=== PATIENT | female | born 1990 | race Caucasian/White ===

== ENCOUNTER → 2017-09-06 | Outpatient (CLI) | payer BC ==
--- NOTE | 2017-09-06 13:53 | US ---
EXAMINATION TYPE: Transabdominal DATE OF EXAM: 07/31/17 COMPARISON: NONE CLINICAL HISTORY: R10.2 Pelvic and perineal pain, Z33.1 .... cramping, prior miscarriage. EXAM PERFORMED: Transabdominal (TA) EXAM MEASUREMENTS: GESTATIONAL AGE / DATING Physician Established: Not yet established Dates by LMP: (6 weeks/4 days) EDC: 04/28/2018 Dates by First Scan: No previous this is first scan Dates by Current Scan for: (6 weeks/4 days) EDC: 04/27/2018 MATERNAL ANATOMY Uterus: 9.4 x 3.9 x 5.2 cm Right Ovary: 2.5 x 1.8 x 2.5 cm Left Ovary: 2.9 x 1.7 x 1.9 cm Post CDS / Adnexa: wnl Presence of free fluid: none GESTATION / SURVEY CRL: 0.8 cm (6 weeks/5 days) Yolk Sac (normal less than 6mm): 0.3 cm Heart Rate: 135 bpm Rhythm: Normal IUP: Viable IUP Date of LMP: 07/22/2017 Single live intrauterine gestation is seen as gestational sac, yolk sac, and pole are identifie d. No free fluid is seen in pelvic cul-de-sac. Both ovaries are seen. No suspicious extraovarian adnexal masses are noted. IMPRESSION: Single live intrauterine gestation is present, mean crown-rump length is 0.8 cm corresponding to 6 we eks 5 day old fetus.
== END | disposition home or self-care (01) ==
LOC: RADUSMAIN 13:14
PROVIDERS: ATTEND Physician Assistant Medical
DX: O26.891 Other specified pregnancy related conditions, first trimester (principal); Z3A.01 Less than 8 weeks gestation of pregnancy; Z87.59 Personal history of other complications of pregnancy, childbirth and the puerperium
CPT/HCPCS: 76801

== ENCOUNTER 2017-12-21 16:04 | Observation (INO) | payer BC, OTHER ==
[2017-12-21] MEDS ORDERED: SODIUM CHLORIDE 0.9% 1,000 ML IV STA (16:38)
[2017-12-21 17:35] LABS: Basophils # (A) 0.1 k/uL (0-0.2); Basophils % (A) 0 %; Eosinophils # (A) 0.2 k/uL (0-0.7); Eosinophils % (A) 2 %; HGB 12.1 gm/dL (11.4-16.0); Lymphocytes # (A) 1.8 k/uL (1.0-4.8); Lymphocytes % (A) 14 %; MCH 31.7 pg (25.0-35.0); MCHC 34.6 g/dL (31.0-37.0); MCV 91.7 fL (80.0-100.0); Mean Platelet Volume 7.1; Monocytes # (A) 0.6 k/uL (0-1.0); Monocytes % (A) 5 %; Neutrophils # (A) 10.6 k/uL (1.3-7.7); Neutrophils % (A) 79 %; Platelet Count 335 k/uL (150-450); RBC 3.82 m/uL (3.80-5.40); RDW 12.7 % (11.5-15.5); WBC 13.4 k/uL (3.8-10.6)
[2017-12-21 17:45] LABS: ALT 22 U/L (9-52); AST 18 U/L (14-36); Albumin 3.6 g/dL (3.5-5.0); Alkaline Phosphatase 65 U/L (38-126); Anion Gap 7 mmol/L; Blood Urea Nitrogen 8 mg/dL (7-17); Calcium 9.3 mg/dL (8.4-10.2); Carbon Dioxide 24 mmol/L (22-30); Chloride 106 mmol/L (98-107); Glucose 70 mg/dL (74-99); Magnesium 1.6 mg/dL (1.6-2.3); Potassium 3.9 mmol/L (3.5-5.1); Sodium 137 mmol/L (137-145); Total Bilirubin 0.2 mg/dL (0.2-1.3); Total Protein 6.5 g/dL (6.3-8.2)
[2017-12-21 17:53] LABS: D-Dimer 0.39 mg/L FEU (<0.60); Prothrombin Time 9.8 sec (9.0-12.0)
[2017-12-21 18:02] LABS: Creatine Kinase 36 U/L (30-135)
[2017-12-21 18:13] LABS: Creatine Kinase MB 0.6 ng/mL (0.0-2.4); Troponin I <0.012 ng/mL (0.000-0.034)
[2017-12-21] MEDS ORDERED: NITROGLYCERIN SL TABS 0.4 MG TAB SUBLINGUAL PRN (19:34)
--- NOTE | 2017-12-21 19:49 | ED ---
Chest Pain HPI - General Chief Complaint: Chest Pain Stated Complaint: chest pain Time Seen by Provider: 12/21/17 16:26 Source: patient Mode of arrival: wheelchair Limitations: no limitations - History of Present Illness Initial Comments: 7 years O female she is at this point had a chest pain palpitation heart rate went up to as high as 1:30 and then now it kind of came down to around 58 she denies any vaginal bleeding any abdominal cramps chest pain was more so on the on this left side underneath her left breast she did say that the deep deep breath makes it worse and she has a small episodes of chest pain lasting very short duration she said she had a few of those duration since he been in the hospital. Past S pulse rate was around 1:30 past medical history is unremarkable past surgical history significant for appendectomy denies any alcohol now denies any tobacco use family history mom and his cervical cancer. - Related Data Home Medications Medication Instructions Recorded Confirmed Mtp-Dget-Etlqk Acid 1 cap PO HS 12/21/17 12/21/17 [-U Capsule (formulary)] Allergies Allergy/AdvReac Type Severity Reaction Status Date / Time No Known Allergies Allergy Verified 12/21/17 16:19 Review of Systems ROS Statement: Those systems with pertinent positive or pertinent negative responses have been documented in the HPI. ROS Other: All systems not noted in ROS Statement are negative. Past Medical History Past Medical History: No Reported History History of Any Multi-Drug Resistant Organisms: None Reported Past Surgical History: Appendectomy Past Psychological History: No Psychological Hx Reported Smoking Status: Never smoker Past Alcohol Use History: None Reported Past Drug Use History: None Reported General Exam - General Exam Comments Initial Comments: General: The patient is awake and alert, in no distress, and does not appear acutely ill. Skin: Skin is warm and dry and no rashes or lesions are noted. Eye: Pupils are equal, round and reactive to light, extra-ocular movements are intact; there is normal conjunctiva bilaterally. Ears, nose, mouth and throat: There are moist mucous membranes and no oral lesions. Neck: The neck is supple, there is no tenderness or JVD. Cardiovascular: There is a regular rate and rhythm. No murmur, rub or gallop is appreciated. Respiratory: To auscultation bilateral, no wheezing no rhonchi no distress respiratory lamb noticed Gastrointestinal: Soft, non-distended, non-tender abdomen without masses or organomegaly noted. There is no rebound or guarding present. Bowel sounds are unremarkable. Back: There is no tenderness to palpation in the midline. There is no obvious deformity. Musculoskeletal: Normal ROM, no tenderness, There is no pedal edema. There is no calf tenderness or swelling. No cords were appreciated. Neurological: CN II-XII intact, Cranial nerves III through XII are intact. There are no obvious motor or sensory deficits. Coordination appears grossly intact. Speech is normal. Psychiatric: Cooperative, appropriate mood & affect, normal judgment. Limitations: no limitations Course Vital Signs 12/21/17 12/21/17 12/21/17 16:14 18:49 19:45 Temperature 98.3 F 98.3 F Pulse Rate 88 84 79 Respiratory 18 18 18 Rate Blood Pressure 119/74 138/73 108/69 O2 Sat by Pulse 100 99 100 Oximetry EKG is normal sinus ventricular rate is 81 MD interval is 162 QRS duration is 74 QT/QTC 378/439 review of this EKG does not reveal any ST elevation rested up, Troponin, CBC, d-dimer, comprehensive metabolic panel are unremarkable considering that she had a few repetitive episodes of chest pain to the ER she she'll be admitted under Dr. Burgos service cardiology be consulted Disposition Clinical Impression: Chest pain Disposition: ADMITTED IP TO THIS HOSP Condition: Good Referrals: None,Stated [Primary Care Provider] - 1-2 days
[2017-12-21] MEDS ORDERED: PRENATAL VIT-IRON-FOLIC ACID 1 EACH CAP PO SCH (21:00)
[2017-12-22 00:03] LABS: Creatine Kinase 27 U/L (30-135)
[2017-12-22 00:17] LABS: Creatine Kinase MB 0.4 ng/mL (0.0-2.4); Troponin I <0.012 ng/mL (0.000-0.034)
[2017-12-22 06:13] LABS: Cholesterol 152 mg/dL (<200); HDL Cholesterol 52 mg/dL (40-60); LDL Cholesterol,Calculated 77 mg/dL (0-99); Triglycerides 114 mg/dL (<150)
[2017-12-22 06:17] LABS: Creatine Kinase 23 U/L (30-135)
[2017-12-22 06:31] LABS: Creatine Kinase MB 0.4 ng/mL (0.0-2.4); Troponin I <0.012 ng/mL (0.000-0.034)
[2017-12-22] MEDS ORDERED: ACETAMINOPHEN TAB 325 MG TAB PO PRN (12:17)
--- NOTE | 2017-12-22 12:22 | P.CRDCN ---
History of Present Illness History of present illness: This is Dr. Go dictating a consult on this patient The patient was interviewed and examined by me IMPRESSION / ASSESSMENT: Atypical chest discomfort lower left chest anteriorly pleuritic in nature normal d-dimer No evidence for acute myocardial infarction PLAN: 2-D echo and Doppler study to assess pericardium HPI 27-year-old female, , presenting with left lower chest discomfort over the lower ribs well below the breasts. There is a localized discomfort which is pleuritic in nature. No association shortness of breath no dizziness lightheadedness or palpitations ROS: No fever chills or rigors, no cough, phlegm or expectoration, no nausea, vomiting or diarrhea, no hematuria, dysuria, no musculoskeletal complaints, no strokes or seizures, no skin lesions. EXAMINATION Afebrile 98.3F pulse rate in the 70s blood pressure 93/52 Normal heart sounds normal S1 normal S2 Normal breath sounds no adventitious sounds No rub over the area of pain Extremities are warm no edema REVIEW OF LABS, ECG White count 13.4, hemoglobin 10.1, and at lites normal, renal function normal, normal cardiac enzymes 3, LDL 77 Normal d-dimer Twelve-lead ECG shows sinus rhythm normal ME narrow QRS normal ST segments Past Medical History Past Medical History: No Reported History Additional Past Medical History / Comment(s): pt stated she is 22 weeks . History of Any Multi-Drug Resistant Organisms: None Reported Past Surgical History: Appendectomy Additional Past Surgical History / Comment(s): wisdom teeth extractions Past Anesthesia/Blood Transfusion Reactions: No Reported Reaction Smoking Status: Never smoker - Past Family History Mother Family Medical History: Cancer Additional Family Medical History / Comment(s): cervical cancer twice- hysterectomy Father Family Medical History: No Reported History Medications and Allergies Home Medications Medication Instructions Recorded Confirmed Type Yeq-Hrgn-Qswmz Acid 1 cap PO HS 12/21/17 12/21/17 History [-U Capsule (formulary)] Allergies Allergy/AdvReac Type Severity Reaction Status Date / Time No Known Allergies Allergy Verified 12/21/17 21:01 Physical Exam Vitals: Vital Signs Temp Pulse Pulse Resp BP BP Pulse Ox 12/22/17 08:00 98.3 F 87 14 93/52 98 12/22/17 03:40 97.5 F L 72 16 93/55 97 12/22/17 03:25 16 12/22/17 00:05 98 F 77 16 95/54 98 12/21/17 23:30 18 12/21/17 21:11 18 12/21/17 20:55 97.7 F 81 16 119/70 98 12/21/17 20:43 97.0 F L 94 18 113/57 98 12/21/17 20:24 102 H 18 98 12/21/17 19:45 79 18 108/69 100 12/21/17 18:49 98.3 F 84 18 138/73 99 12/21/17 16:14 98.3 F 88 18 119/74 100 Intake and Output 12/21/17 12/22/17 12/22/17 22:59 06:59 14:59 Intake Total 525 Balance 525 Intake: IV 525 Sodium Chloride 0.9% 1, 525 000 ml @ 75 mls/hr IV . [id number] STA Rx#:[id number] Other: Voiding Method Toilet Toilet Toilet Weight 58.5 kg Results 12/21/17 17:00 12/21/17 17:00 Cardiac Enzymes 12/21/17 12/21/17 12/21/17 Range/Units 17:00 17:00 23:01 AST 18 (14-36) U/L CK-MB (CK-2) 0.6 0.4 (0.0-2.4) ng/mL Troponin I <0.012 <0.012 (0.000-0.034) ng/mL 12/22/17 Range/Units 05:30 AST (14-36) U/L CK-MB (CK-2) 0.4 (0.0-2.4) ng/mL Troponin I <0.012 (0.000-0.034) ng/mL Coagulation 12/21/17 Range/Units 17:00 PT 9.8 (9.0-12.0) sec APTT 25.0 (22.0-30.0) sec Lipids 12/22/17 Range/Units 05:30 Triglycerides 114 (<150) mg/dL Cholesterol 152 (<200) mg/dL HDL Cholesterol 52 (40-60) mg/dL CBC 12/21/17 Range/Units 17:00 WBC 13.4 H (3.8-10.6) k/uL RBC 3.82 (3.80-5.40) m/uL Hgb 12.1 (11.4-16.0) gm/dL Hct 35.0 (34.0-46.0) % Plt Count 335 (150-450) k/uL Comprehensive Metabolic Panel 12/21/17 Range/Units 17:00 Sodium 137 (137-145) mmol/L Potassium 3.9 (3.5-5.1) mmol/L Chloride 106 (98-107) mmol/L Carbon Dioxide 24 (22-30) mmol/L BUN 8 (7-17) mg/dL Creatinine 0.55 (0.52-1.04) mg/dL Glucose 70 L (74-99) mg/dL Calcium 9.3 (8.4-10.2) mg/dL AST 18 (14-36) U/L ALT 22 (9-52) U/L Alkaline Phosphatase 65 (38-126) U/L Total Protein 6.5 (6.3-8.2) g/dL Albumin 3.6 (3.5-5.0) g/dL Current Medications Generic Name Dose Route Start Last Admin Trade Name Freq PRN Reason Stop Dose Admin Acetaminophen 650 mg 12/22/17 12:17 Tylenol Tab PO Q6HR PRN Fever and/ or Pain Multivi/Iron Carb/Fe Sulf/FA/Prenat 1 each 12/21/17 21:00 12/21/17 21:26 -U Capsule PO 1 each HS JULIO Administration Nitroglycerin 0.4 mg 12/21/17 19:34 Nitrostat SUBLINGUAL Q5M PRN Chest Pain Intake and Output 12/21/17 12/22/17 12/22/17 22:59 06:59 14:59 Intake Total 525 Balance 525 Intake: IV 525 Sodium Chloride 0.9% 1, 525 000 ml @ 75 mls/hr IV . [id number] STA Rx#:[id number] Other: Voiding Method Toilet Toilet Toilet Weight 58.5 kg 12/21/17 17:00 12/21/17 17:00
[2017-12-22 16:04] VITALS: BP 106/64; PULSE 83; RESP 14; TEMP 97.9
--- NOTE | 2017-12-22 17:38 | ECHOF ---
Referral Reason:chest pain MEASUREMENTS -------- HEIGHT: 160.0 cm WEIGHT: 58.1 kg BP: IVSd: 0.9 cm (0.6 - 1.1) LVIDd: 3.9 cm (3.9 - 5.3) LVPWd: 0.9 cm (0.6 - 1.1) IVSs: 1.1 cm LVIDs: 2.8 cm LVPWs: 1.2 cm LA Diam: 2.8 cm (2.7 - 3.8) RVIDd: 2.0 cm (< 3.3) Ao Diam: 2.4 cm (2.0 - 3.7) LA Diam: 2.9 cm (2.7 - 3.8) AV Cusp: 1.8 cm (1.5 - 2.6) EPSS: 0.3 cm MV E Sebastian: 0.81 m/s MV DecT: 250 ms MV A Sebastian: 0.62 m/s MV E/A Ratio: 1.31 RAP: 5.00 mmHg RVSP: 22.76 mmHg MV EF SLOPE: 87.51 mm/s (70 - 150) MV EXCURSION: 22.39 mm (> 18.000) FINDINGS -------- Sinus rhythm. This was a technically good study. LV size, wall thickness and systolic function are normal, with an EF greater than 55%. The left una tricular size is normal. The right ventricle is normal in size. The left atrial size is normal. The right atrial size is normal. The aortic valve is trileaflet, and appears structurally normal. No aortic stenosis or regurgitation. The mitral valve leaflets are mildly thickened. There is trace mitral regurgitation. Mild tricuspid regurgitation present. There is no evidence of pulmonary hypertension. The right v entricular systolic pressure, as measured by Doppler, is 22.76mmHg. There is no pulmonic regurgitation present. The aortic root size is normal. There is no pericardial effusion. CONCLUSIONS -------- 1. LV size, wall thickness and systolic function are normal, with an EF greater than 55%. 2. The left ventricular size is normal. 3. The right ventricle is normal in size. 4. The left atrial size is normal. 5. The right atrial size is normal. 6. The aortic valve is trileaflet, and appears structurally normal. No aortic stenosis or regurgitati on. 7. The mitral valve leaflets are mildly thickened. 8. There is trace mitral regurgitation. 9. Mild tricuspid regurgitation present. 10. There is no evidence of pulmonary hypertension. 11. The right ventricular systolic pressure, as measured by Doppler, is 22.76mmHg. 12. There is no pulmonic regurgitation present. 13. The aortic root size is normal. 14. There is no pericardial effusion. SAFE DEPOSIT ATTENDANT: Yari Dangelo RDCS
--- NOTE | 2017-12-22 18:44 | P.HPIM ---
History of Present Illness H&P Date: 12/22/17 Chief Complaint: Left-sided chest pain Mrs. Lisa is a 27-year-old female with no significant past medical history who was 20 weeks coming in to the hospital with a chief complaint of right sided lower chest discomfort over her ribs well below her breasts. The chest discomfort was along the left rib cage it was pleuritic in nature without any difficulty in breathing. Patient denies having any dizziness or lightheadedness. The patient checked her blood pressure at that time it was high and also heart heart rate was high and so came into the hospital for further evaluation. Patient denies having any fevers chills or rigors. No abdominal pain nausea vomiting or diarrhea. No dysuria or hematuria. She denies having any headaches any loss of consciousness or dizziness. No slurring of speech no weakness of her extremities. Patient denies having any history of recent travel. No family history of blood clots. No sick contacts. During the hospital stay patient had serial troponins that have been negative d- dimer that was 0.36 and an echocardiogram that is within normal limits. Review of Systems REVIEW OF SYSTEMS: PSYCH: No anxiety or depression NEURO:No c/o weakness of the extremties, No facial droop, No speech abnormalities. VASCULAR: Peripheral nervous system within the normal limits no edema HEMATOLOGIC: No history of easy bleeding and bruising . No recent infections . RESPIRATORY: No cough, No SOB, No chest discomfort. IMMUNE: No infections INTEGUMENT: no rashes OPHTHALMOLOGIC: No blurry vision and no eye discharge : No dysuria or hematuria UPPER CUTTER MACHINE: No bleeding PV CARDIAC: No shortness of breath , paroxysmal nocturnal dyspnea MUSCULOSKELETAL : No Aches or pains in the joints or muscles. GI: No abdominal pain, Nausea or vomiting. No constipation or diarrhea. Past Medical History Past Medical History: No Reported History Additional Past Medical History / Comment(s): pt stated she is 22 weeks . History of Any Multi-Drug Resistant Organisms: None Reported Past Surgical History: Appendectomy Additional Past Surgical History / Comment(s): wisdom teeth extractions Past Anesthesia/Blood Transfusion Reactions: No Reported Reaction Smoking Status: Never smoker - Past Family History Mother Family Medical History: Cancer Additional Family Medical History / Comment(s): cervical cancer twice- hysterectomy Father Family Medical History: No Reported History Medications and Allergies Home Medications Medication Instructions Recorded Confirmed Type Upj-Rvls-Zgmhz Acid 1 cap PO HS 12/21/17 12/21/17 History [-U Capsule (formulary)] Allergies Allergy/AdvReac Type Severity Reaction Status Date / Time No Known Allergies Allergy Verified 12/21/17 21:01 Physical Exam Vitals: Vital Signs Temp Pulse Pulse Resp BP BP Pulse Ox 12/22/17 16:00 97.9 F 83 14 106/64 99 12/22/17 12:00 98.2 F 90 16 104/69 97 12/22/17 08:00 98.3 F 87 14 93/52 98 12/22/17 03:40 97.5 F L 72 16 93/55 97 12/22/17 03:25 16 12/22/17 00:05 98 F 77 16 95/54 98 12/21/17 23:30 18 12/21/17 21:11 18 12/21/17 20:55 97.7 F 81 16 119/70 98 12/21/17 20:43 97.0 F L 94 18 113/57 98 12/21/17 20:24 102 H 18 98 12/21/17 19:45 79 18 108/69 100 12/21/17 18:49 98.3 F 84 18 138/73 99 Intake and Output 12/22/17 12/22/17 12/22/17 06:59 14:59 22:59 Intake Total 525 750 Balance 525 750 Intake: IV 525 Sodium Chloride 0.9% 1, 525 000 ml @ 75 mls/hr IV . [id number] STA Rx#:[id number] Oral 750 Other: Voiding Method Toilet Toilet Toilet GENERAL EXAM GEN. APPEARANCE: alert, in no apparent distress HEAD EXAM: atraumatic, normocephalic, normal inspection EYE EXAM: normal appearance, PERRL, EOMI. Absent: scleral icterus, conjunctival injection, periorbital swelling ENT EXAM: normal exam, mucous membranes moist NECK EXAM: normal inspection. Absent: tenderness, meningismus, full ROM, lymphadenopathy; no JVD RESPIRATORY EXAM: normal lung sounds bilaterally. No wheezes or crackles CARDIOVASCULAR EXAM: regular rate, normal rhythm, normal heart sounds. Absent : systolic murmur, diastolic murmur, rubs, gallop, clicks GI/ABDOMINAL EXAM: 20 weeks . No epigastric tenderness. EXTREMITIES EXAM: Mild pedal edema NEUROLOGICAL EXAM: alert, oriented X3, no focal deficits PSYCHIATRIC EXAM: normal affect, normal mood SKIN EXAM: warm, dry, intact, normal color. Absent: rash Results CBC & Chem 7: 12/21/17 17:00 12/21/17 17:00 Labs: Abnormal Lab Results - Last 24 Hours (Table) 12/21/17 12/22/17 Range/Units 23:01 05:30 Total Creatine Kinase 27 L 23 L (30-135) U/L Thrombosis Risk Factor Assmnt - Choose All That Apply Any of the Below Risk Factors Present?: Yes Each Factor Represents 1 point: or , Swollen legs (current) Other Risk Factors: No Other congenital or acquired thrombophilia - If yes, enter type in comment: No Thrombosis Risk Factor Assessment Total Risk Factor Score: 2 Thrombosis Risk Factor Assessment Level: Low Risk Assessment and Plan Assessment: ASSESSMENT Atypical chest pain 20 weeks Leukocytosis -may be reactive Plan: Patient who is 20 weeks came in with atypical chest pain. Serial troponins and EKGs within normal limits. D-dimer is within normal limits. Only significant lab is mild leukocytosis. Patient denies having any symptoms of hematuria or dysuria. Urine analysis was not done. She has been cleared by cardiology to be discharged home. Patient is advised to follow up with her WAITER/WAITRESS CABIN CLASS on Sunday or come back to the ER if her symptoms recur. Patient is being discharged home to have follow-up with her soil field technician.
--- NOTE | 2017-12-22 18:46 | P.DS ---
Providers Date of admission: 12/21/17 19:34 Attending physician: Sudeep Burgos Consults: 12/21/17 19:34 Consult Physician Urgent Consulting Provider: Ernie Kim Consult Reason/Comments: chest pain Do you want consulting provider notified?: Yes Primary care physician: Stated None Hospital Course: Mrs. Lisa is a 27-year-old female with no significant past medical history who was 20 weeks coming in to the hospital with a chief complaint of right sided lower chest discomfort over her ribs well below her breasts. The chest discomfort was along the left rib cage it was pleuritic in nature without any difficulty in breathing. Patient denies having any dizziness or lightheadedness. The patient checked her blood pressure at that time it was high and also heart heart rate was high and so came into the hospital for further evaluation. Patient denies having any fevers chills or rigors. No abdominal pain nausea vomiting or diarrhea. No dysuria or hematuria. She denies having any headaches any loss of consciousness or dizziness. No slurring of speech no weakness of her extremities. Patient denies having any history of recent travel. No family history of blood clots. No sick contacts. During the hospital stay patient had serial troponins that have been negative d- dimer that was 0.36 and an echocardiogram that is within normal limits. Discharge diagnosis Atypical chest pain 20 weeks Leukocytosis -may be reactive Plan: Patient who is 20 weeks came in with atypical chest pain. Serial troponins and EKGs within normal limits. D-dimer is within normal limits. Only significant lab is mild leukocytosis. Patient denies having any symptoms of hematuria or dysuria. Urine analysis was not done. She has been cleared by cardiology to be discharged home. Patient is advised to follow up with her FOOD AND NUTRITION PROFESSOR on Sunday or come back to the ER if her symptoms recur. Patient is being discharged home to have follow-up with her executive business coach. Patient Condition at Discharge: Good Plan - Discharge Summary Discharge Rx Participant: Yes New Discharge Prescriptions: Continue Thr-Fvoe-Ibkta Acid [-U Capsule (formulary)] 1 cap PO HS Discharge Medication List Rfv-Jveq-Mfenk Acid [-U Capsule (formulary)] 1 cap PO HS [History] Follow up Appointment(s)/Referral(s): None,Stated [Primary Care Provider] - 1-2 days Patient Instructions/Handouts: Chest Pain (DC) Discharge Disposition: HOME SELF-CARE
== END 2017-12-22 18:26 | disposition home or self-care (01) ==
LOC: EC 16:04 → 3OBS 19:34
PROVIDERS: ADMIT Hospitalist; ATTEND Hospitalist
DX: O99.89 Other specified diseases and conditions complicating pregnancy, childbirth and the puerperium (principal); R07.89 Other chest pain; R00.2 Palpitations; O99.112 Other diseases of the blood and blood-forming organs and certain disorders involving the immune mechanism complicating pregnancy, second trimester; D72.829 Elevated white blood cell count, unspecified; O12.02 Gestational edema, second trimester; Z3A.22 22 weeks gestation of pregnancy; Z90.89 Acquired absence of other organs; Z98.818 Other dental procedure status; Z80.49 Family history of malignant neoplasm of other genital organs
CPT/HCPCS: 99285 ×2; 96360 ×2; 96361 ×2; 36415; 93005; 93306; 85379; 80061; 80053; 82550 ×2; 82553 ×2; 83735; 84484 ×2; 85025; 85610; 85730; G0378 ×2; S0197

== ENCOUNTER 2018-03-25 10:22 | Outpatient (CLI) | payer BC, OTHER ==
--- NOTE | 2018-03-25 11:57 | US ---
EXAMINATION TYPE: US OB >= 14 wk fetus DATE OF EXAM: 03/25/2018 COMPARISON: None CLINICAL HISTORY: KEE, EFW, Placenta placement TECHNIQUE: Transabdominal ultrasound was performed. GESTATIONAL AGE / DATING Physician Established: ( 35 weeks/2 days) EDC: 04/27/18 Dates by Current Scan: (34 weeks/1 days) EDC: 05/05/18 SURVEY IUP: Single PLACENTA: Patient states she has 2 placenta's, they appear wnl PREVIA: none KEE: 10.9 cm 2.8 CERVICAL LENGTH (transabdominal: norm > 3.0cm): 2.8 cm (Supplemental transvaginal imaging NOT performed to verify cervical length.) Per AGNIESZKA Decker BIOMETRY PRESENTATION: Vertex BPD: 8.5 cm 34 weeks / 2 days HC: 31.8 cm 35 weeks / 6 days AC: 30.7 cm 34 weeks / 5 days FL: 6.5 cm 33 weeks / 4 days ESTIMATED WEIGHT IN GRAMS: 3432 grams ESTIMATED WEIGHT IN LBS/OZ: 5 lbs. 6 oz. WEIGHT PERCENTAGE BASED ON ESTABLISHED DATES: 25% HC/AC: 1.0 FL/AC: 21.6 HEART RATE: 151 bpm RHYTHM: Normal There is a Y-shape of the cervix and shortening of the cervix with the posterior aspect of the placen ta approaching the internal cervical os, approximately 5 mm away from the internal cervical os. IMPRESSION: Findings of cervical incompetence with a Y-shaped cervix and shortening of the cervix (2.8 cm). The p osterior placenta appears at least low-lying with suspicion for partial placenta previa. Single live intrauterine is seen with a sonographic age of 34 weeks and 1 day on today's examination, s lightly discordant with previous physician established dates. A [place] level critical message alert has been initiated for Pancho Melara DO via the [employer] Critical Results System on 03/25/2018 11:52 AM. This message alert has been sent to Pancho Melara DO via the preferences provided by the clinician for the receipt of Radiology Critical Findings. [facility] ID [id number].
[2018-03-25 13:00] VITALS: BP 130/72; PULSE 95; RESP 16; TEMP 97.2
== END 2018-03-25 11:55 | disposition home or self-care (01) ==
LOC: FBPOP 10:22
PROVIDERS: ATTEND Obstetrics & Gynecology
DX: O34.33 Maternal care for cervical incompetence, third trimester (principal); Z3A.34 34 weeks gestation of pregnancy
CPT/HCPCS: 59025; 76805; 84112; 99213

== ENCOUNTER 2018-03-29 08:45 | Outpatient (CLI) | payer BC, OTHER ==
[2018-03-29 09:42] VITALS: BP 128/77; PULSE 124; RESP 18; TEMP 98
--- NOTE | 2018-03-29 10:31 | US ---
EXAMINATION TYPE: US OB >= 14 wk fetus DATE OF EXAM: 03/29/2018 COMPARISON: Most recent ultrasound from 4 days ago CLINICAL HISTORY: vaginal bleedingVaginal bleeding x 2 days, known third trimester TECHNIQUE: Transabdominal (TA) GESTATIONAL AGE / DATING Physician Established: (35 weeks/6 days) EDC: 04/27/2018 Dates by LMP: (35 weeks/5 days) EDC: 04/28/2018 Dates by First Scan: (35 weeks/6 days) EDC: 04/27/2018 Dates by Current Scan: (35 weeks/4 days) EDC: 04/29/2018 SURVEY IUP: Single PLACENTA: Patient states she has 2 placenta's, they appear wnl PREVIA: limited visualization due to position, posterior portion of placenta appears to be low lying KEE: 11.0 cm Normal CERVICAL LENGTH (transabdominal: norm > 3.0cm): 3.0 cm BIOMETRY PRESENTATION: Vertex BPD: 8.9 cm 35 weeks / 6 days HC: 31.8 cm 35 weeks / 6 days AC: 30.9 cm 34 weeks / 6 days FL: 6.9 cm 35 weeks / 3 days ESTIMATED WEIGHT IN GRAMS: 2627 grams ESTIMATED WEIGHT IN LBS/OZ: 5 lbs. 13 oz. WEIGHT PERCENTAGE BASED ON ESTABLISHED DATES: 33% HC/AC: 1.03 Normal FL/AC: 22.36 Normal HEART RATE: 181 bpm RHYTHM: Normal Single live intrauterine gestation is redemonstrated. Normal cephalad presentation to fetus is again seen. Cervix measures mildly thinned not significantly changed from most recent ultrasound. Amniotic fluid index remains within normal limits. Placenta remains low-lying. biometry measurements are congruent and slightly more advanced than most recent study. IMPRESSION: As above
--- NOTE | 2018-03-29 12:15 | US ---
EXAMINATION TYPE: US OB transvaginal DATE OF EXAM: 03/29/2018 COMPARISON: Ultrasound earlier today CLINICAL HISTORY: vaginal bleeding. EXAM PERFORMED: Transvaginal PRESENTATION: Vertex HEART RATE: 181 taken early in OB ultrasound?? bpm CX measurement: 3.4 Additional imaging requested by Dr. Melara of vasculature of cervix. Pictures taken. Repeat imaging of the cervix shows no suspicious narrowing with cephalad presentation to fetus redemo nstrated. Trace fluid in the endocervical canal is noted.
--- NOTE | 2018-04-06 12:04 | P.MSEPDOC ---
Presenting Problems - Arrival Data Date of Arrival on Unit: 03/29/18 Time of Arrival on Unit: 08:45 Mode of Transport: Portable - Complaint OB-Reason for Admission/Chief Complaint: Vaginal Bleeding Comment: pt presents to triage with vaginal bleeding since 1945 last night, changed 4 pads, having dime size clots, not wearing a pad at this time, states darker blood since 0000 this am Medical History - Information : 2 Para: 0 Term: 0 : 0 Abortions: Spontaneous or Elective: 1 Number of Living Children: 0 - Gestational Age Gestational Age by CHANDLER (wks/days): 35 Weeks and 6 Days - History Complications: Placenta Previa Review of Systems - Review of Systems Constitutional: No problems Breast: No problems ENT: No problems Cardiovascular: No problems Respiratory: No problems Gastrointestinal: No problems Genitourinary: No problems Musculoskeletal: No problems Neurological: No problems Skin: No problems Vital Signs - Temperature Temperature: 98.0 F Temperature Source: Temporal Artery Scan - Pulse Right Brachial Pulse Rate: 124 Pulse Assessment Method: Automatic Cuff - Respirations Respiratory Rate: 18 Oxygen Delivery Method: Room Air O2 Sat by Pulse Oximetry: 98 - Blood Pressure Right Arm Blood Pressure: 128/77 Blood Pressure Mean: 94 Blood Pressure Source: Automatic Cuff Medical Screen Scoring (Pre) - Cervical Exam Dilation: Exam Deferred Effacement: Exam Deferred Membranes: Intact - Uterine Contractions Frequency: < 36 weeks = 6 Duration: > 40 seconds = 2 Intensity: N/A - Maternal Vital Signs Maternal Temperature: N/A Maternal Blood Pressure: N/A Signs of Preeclampsia: N/A Maternal Respirations: N/A - Pain Assessment Pain Location and Character: Perineal Pain Scale Used: Numeric (1 - 10) Pain Description: Pressure Pain Radiation Location: none Pain Duration: 8 Pain Duration Units: Hours Pain Behavior: Vocalization - Maternal Trauma Maternal Trauma: N/A - Assessment Baseline FHR: 140 Heart Rate - NICHD Category: Category I (Normal) = 0 NST: Reactive Position: N/A Station: N/A - Total Score Total Score (Pre): 8 - Level of Risk Level of Risk: Medium (6-9) Physician Notification (Pre) - Physician Notified Physician Notified Date: 03/29/18 Physician Notified Time: 09:15 Physician/Practitioner Notifed:: Dr. Melara Spoke With: Dr. Melara New Order Received: Yes - Notification Comment Comment: stat ultrasound ordered, observe for vaginal bleeding on sharifa pad Medical Screen Scoring (Post) - Cervical Exam Dilation: Exam Deferred Effacement: Exam Deferred Membranes: Intact - Uterine Contractions Frequency: > 5 minutes apart = 1 Duration: > 40 seconds = 2 Intensity: N/A - Maternal Vital Signs Maternal Temperature: N/A Maternal Blood Pressure: N/A Signs of Preeclampsia: N/A Maternal Respirations: N/A - Pain Assessment Pain Scale Used: Numeric (1 - 10) Pain Intensity: 0 - Maternal Trauma Maternal Trauma: N/A - Assessment Heart Rate: 130 Heart Rate - NICHD Category: Category I (Normal) = 0 NST: Reactive Position: N/A - Total Score Total Score (Post): 3 - Post Treatment Level of Risk Post Treatment Level of Risk: Low (0-5) Physician Notification (Post) - Physician Notified Physician Notified Date: 03/29/18 Physician Notified Time: 12:15 Physician/Practitioner Notified:: Dr. Melara Spoke With: Dr. Melara New Order Received: Yes - Notification Comment Comment: Dr. Melara had transvag ultrasound done per pt request for today instead of 04/02 and results are pending, pics are in pt's chart per ultrasound , she is going to office for [address] Melara to discuss results and plans from here Disposition - Disposition OB Disposition: Triage, Discharge to home, Written follow up instructions reviewed Discharge Date: 03/29/18 Discharge Time: 12:30 I agree with the RN Medical Screening Exam: Yes Risk & Benefit of care provided described in d/c instruction: Yes Diagnosis: SPOTTING COMPLICATING , THIRD TRIMESTER
== END 2018-03-29 12:30 | disposition home or self-care (01) ==
LOC: FBPOP 08:45
PROVIDERS: ATTEND Obstetrics & Gynecology
DX: O26.853 Spotting complicating pregnancy, third trimester (principal); Z3A.35 35 weeks gestation of pregnancy
CPT/HCPCS: 59025; 76805; 76817; 99215

== ENCOUNTER 2018-04-20 08:07 | Inpatient (IN) | payer BC, OTHER ==
[2018-04-19 15:48] VITALS: BMI 25.6
--- NOTE | 2018-04-19 17:20 | P.HPOB ---
History of Present Illness H&P Date: 04/19/18 Chief Complaint: Intrauterine at term Leatha is a 27-year-old at 39 weeks gestation who arrives for a primary section. Her Precis course generally speaking has been unremarkable and overall she is feeling well at this time. Throughout the course of the we have been following a low-lying placenta as well as a accessory lobe to her placenta. She has significant concern over the placenta and after speaking to her other secretarial stenographer and their recommendation was to do a primary section. Leatha and I have discussed this in detail and she would feel more comfortable with a primary section as I cannot completely rule out things like vessels across the cervix as well as potential for retained placenta or bleeding issues during labor due to same. She is therefore scheduled for primary section. Her labs include A+ blood type Rh antibody was negative, rubella immune, hepatitis B surface antigen/RPR and HIV were all negative. On physical exam vital signs are stable and afebrile. Heart regular, lungs clear, extremities without pain. Assessment intrauterine at term. Plan primary section Past Medical History Past Medical History: GERD/Reflux Additional Past Medical History / Comment(s): pt stated she is 22 weeks . History of Any Multi-Drug Resistant Organisms: None Reported Past Surgical History: Appendectomy Additional Past Surgical History / Comment(s): wisdom teeth extractions Past Anesthesia/Blood Transfusion Reactions: No Reported Reaction Smoking Status: Never smoker - Past Family History Mother Family Medical History: Cancer Additional Family Medical History / Comment(s): cervical cancer twice- hysterectomy Father Family Medical History: No Reported History Medications and Allergies Home Medications Medication Instructions Recorded Confirmed Type Ppb-Tkcf-Looas Acid 1 cap PO HS 12/21/17 04/19/18 History [-U Capsule (formulary)] Calcium Carbonate [Tums] 500 mg PO TID PRN 04/19/18 04/19/18 History Allergies Allergy/AdvReac Type Severity Reaction Status Date / Time adhesive tape Allergy Rash/Hives Verified 04/19/18 15:36 Exam Osteopathic Statement: *. No significant issues noted on an osteopathic structural exam other than those noted in the History and Physical/Consult. Intake and Output 04/19/18 04/19/18 04/19/18 06:59 14:59 22:59 Other: Weight 63.503 kg - OBG Physical Exam Breast: both: normal (no masses) Abdomen: bowel sounds normal, no diffuse tenderness, no bruit present, no guarding noted, no hepatomegaly, no splenomegaly, no mass Vulva: both: normal Vagina: normal moisture, no discharge Cervix: no lesion, no discharge Uterus: normal size, normal contour Adnexa: both: normal Anus/Rectum: normal perianal skin, no rectal mass, no hemorrhoids, heme negative
[~2018-04-20 08:07] MED LIST: HYDROmorphone 0.5 MG/0.5 ML SYRINGE IVP PRN; NALBUPHINE 10 MG/ML VIAL (10ML MDV) IV PRN; NALOXONE 0.4 MG/ML 1 ML VIAL IV PRN; ONDANSETRON 4 MG/2 ML VIAL IVP PRN; diphenhydrAMINE 50 MG/ML 1 ML VIAL IVP PRN
[2018-04-20] MEDS ORDERED: LIDOCAINE 1% 20 ML VIAL (10MG/ML) FOR IV START INTRADERMA PRN (08:20)
[2018-04-20] MEDS ORDERED: CITRIC ACID-SODIUM CITRATE 15 ML CUP PO ONE (08:20)
[2018-04-20] MEDS ORDERED: ceFAZolin IN SWFI 2 GM/20 ML SYRINGE IVP ONE (08:20)
[2018-04-20] MEDS: LACTATED RINGERS 1,000 ML IV SCH ×4 (08:30→21:58)
[2018-04-20 08:46] LABS: Basophils % (A) 0 %; Eosinophils # (A) 0.2 k/uL (0-0.7); Eosinophils % (A) 2 %; HCT 34.3 % (34.0-46.0); HGB 11.2 gm/dL (11.4-16.0); Lymphocytes # (A) 1.7 k/uL (1.0-4.8); Lymphocytes % (A) 14 %; MCH 29.5 pg (25.0-35.0); MCHC 32.6 g/dL (31.0-37.0); MCV 90.5 fL (80.0-100.0); Mean Platelet Volume 7.9; Monocytes # (A) 0.6 k/uL (0-1.0); Monocytes % (A) 5 %; Neutrophils # (A) 9.7 k/uL (1.3-7.7); Neutrophils % (A) 78 %; Platelet Count 282 k/uL (150-450); RBC 3.79 m/uL (3.80-5.40); RDW 13.7 % (11.5-15.5); WBC 12.4 k/uL (3.8-10.6)
[2018-04-20] MEDS ORDERED: NALBUPHINE 10 MG/ML VIAL (10ML MDV) ONE (09:34)
[2018-04-20] MEDS ORDERED: MORPHINE SULFATE (PF) 0.3 MG/0.3 ML SYR ONE (09:34)
[2018-04-20] MEDS ORDERED: ONDANSETRON 4 MG/2 ML VIAL ONE (09:34)
[2018-04-20] MEDS ORDERED: PHENYLEPHRINE-0.9% NACL SYG 1 MG/10 ML SYRINGE ONE (09:34)
[2018-04-20] MEDS ORDERED: OXYTOCIN 10 UNIT/ML 1 ML VIAL ONE (09:34)
[2018-04-20] MEDS ORDERED: KETOROLAC 30 MG/ML 1 ML VIAL ONE (09:34)
[2018-04-20] MEDS ORDERED: METOCLOPRAMIDE 5 MG/ML 2 ML VIAL IVP PRN (10:17)
[2018-04-20] MEDS ORDERED: ACETAMINOPHEN TAB 325 MG TAB PO PRN (10:17)
[2018-04-20] MEDS ORDERED: ZOLPIDEM 5 MG TAB PO PRN (10:17)
[2018-04-20] MEDS ORDERED: MEASLES-MUMPS-RUBELLA VACC/PF 12,500 UNIT/0.5 ML VIAL SQ ONE (10:17)
[2018-04-20] MEDS ORDERED: diphenhydrAMINE 25 MG CAP PO PRN (10:17)
[2018-04-20] MEDS ORDERED: SIMETHICONE 80 MG CHEWABLE PO PRN (10:17)
[2018-04-20] MEDS ORDERED: diphenhydrAMINE 50 MG/ML 1 ML VIAL IVP PRN ×2 (10:17)
--- NOTE | 2018-04-20 10:22 | P.OP ---
Date of Procedure: 04/20/18 Preoperative Diagnosis: Intrauterine at term: Excess reloadable on placenta Postoperative Diagnosis: Same Procedure(s) Performed: Primary low transverse section Anesthesia: spinal Surgeon: Pancho Melara Curriculum Supervisor #1: Kate Torres Estimated Blood Loss (ml): 500 IV fluids (ml): 600 Urine output (ml): 300 Pathology: other (Placenta) Condition: stable Disposition: floor Operative Findings: Viable male weighing 6 lbs. 9 oz. Description of Procedure: Patient was taken to the operating suite where a spinal anesthetic was found be adequate. She was prepped and draped in the normal sterile fashion placed in dorsal supine position with leftward tilt. Initially a Pfannenstiel skin incision was made and this incision was then carried through to underlying layer of the fascia with the second knife. Fascia was then nicked in the midline and this opening extended laterally with Ghosh scissors. Superior and inferior aspect of this incision were then grasped tented up and bluntly and sharply dissected off the rectus muscles. Rectus muscles were then divided the midline and blunt dissection through the through the peritoneum was made. This opening was then extended superiorly and inferiorly with good visualization of both bowel bladder. Bladder blade was then placed and a bladder flap identified. It was entered sharply with Metzenbaum scissors and this opening was extended across the face of the uterus with Metzenbaum scissors and her bladder flap was digitally created. Knife was then used to incise the uterus and this opening was fully developed with hemostat. Incision was then bluntly extended and head was atraumatically delivered. Mouth nares were then bulb suctioned and baby was easily delivered with gentle downward upper traction. A true knot was noted in the cord. Umbilical cord was then clamped cut usual fashion an nursery personnel was present to assume care. Placenta was then delivered intact and Pitocin was added to the IV. Uterus was then exteriorized cleared of clots and debris and closed in 2 layers with 0 Vicryl suture. Once excellent hemostasis was obtained blood and debris was suctioned from the posterior cul-de-sac and the uterus was reinserted into the abdomen. Peritoneal layer was then closed with 0 Vicryl suture. Fascial layer was closed with 0 Vicryl suture. One layer of 3-0 Vicryl was placed in the subcuticular tissues to reapproximate the skin the skin was then closed with 3- 0 Vicryl. Sponge, lap, needle counts were all correct 2. Patient was then taken to the recovery room in stable and satisfactory condition.
[2018-04-20] MEDS ORDERED: HYDROmorphone 1 MG/ML 1 ML SYRINGE IVP PRN (11:51)
[2018-04-20] MEDS: KETOROLAC 30 MG/ML 1 ML VIAL IVP PRN ×2 (15:35→21:57)
[2018-04-20] MEDS: diphenhydrAMINE 50 MG CAP PO PRN (20:11)
[2018-04-20] MEDS: SENNOSIDES-DOCUSATE SODIUM 1 EACH TAB PO SCH (20:11)
[2018-04-21] MEDS: KETOROLAC 30 MG/ML 1 ML VIAL IVP PRN (04:10)
[2018-04-21] MEDS: diphenhydrAMINE 50 MG CAP PO PRN ×2 (04:10→13:22)
[2018-04-21] MEDS: LACTATED RINGERS 1,000 ML IV SCH (04:39)
[2018-04-21 07:30] LABS: Basophils % (A) 0 %; Eosinophils # (A) 0.2 k/uL (0-0.7); Eosinophils % (A) 2 %; HCT 27.9 % (34.0-46.0); Lymphocytes # (A) 1.5 k/uL (1.0-4.8); Lymphocytes % (A) 12 %; MCH 30.4 pg (25.0-35.0); MCHC 33.5 g/dL (31.0-37.0); MCV 90.8 fL (80.0-100.0); Mean Platelet Volume 7.9; Monocytes # (A) 0.6 k/uL (0-1.0); Monocytes % (A) 5 %; Neutrophils # (A) 10.2 k/uL (1.3-7.7); Neutrophils % (A) 81 %; Platelet Count 229 k/uL (150-450); RBC 3.08 m/uL (3.80-5.40); RDW 13.8 % (11.5-15.5); WBC 12.7 k/uL (3.8-10.6)
--- NOTE | 2018-04-21 07:30 | P.PNOBGPC ---
Subjective - Subjective Principal diagnosis: Status post primary low transverse postoperative day #1 Interval history: Patient seen and examined. Denies nausea, vomiting, chest pain, shortness of breath or calf pain. She is passing flatus and tolerating regular diet. Patient reports: Reports appetite normal, Reports voiding normally, Reports pain well controlled, Reports ambulating normally : doing well Objective - Vital Signs Latest vital signs: Vital Signs Temp Pulse Resp BP Pulse Ox 04/21/18 06:00 18 04/21/18 04:00 98.2 F 89 16 100/53 98 04/21/18 02:00 14 04/21/18 00:00 98.5 F 86 16 113/66 100 04/20/18 22:00 16 04/20/18 20:00 98.1 F 79 16 131/73 98 04/20/18 17:00 15 04/20/18 16:00 98.3 F 88 16 114/65 100 04/20/18 15:00 16 100 04/20/18 12:34 18 04/20/18 12:30 97.6 F 76 18 121/63 98 04/20/18 12:00 97.0 F L 76 18 117/59 98 04/20/18 11:36 97 04/20/18 11:30 97.0 F L 76 18 120/62 97 04/20/18 11:15 80 18 117/59 98 04/20/18 11:00 96.6 F L 76 18 131/63 99 04/20/18 10:45 76 18 105/52 98 04/20/18 10:30 97.0 F L 82 18 118/68 98 04/20/18 08:24 97.3 F L 91 18 122/74 Intake and Output 04/20/18 04/21/18 04/21/18 22:59 06:59 14:59 Output Total 350 700 Balance -350 -700 Output: Urine 350 700 - Exam Lungs: bilateral: normal Chest: Normal S1, Normal S2 Extremities: Present: normal Abdomen: Present: normal appearance, soft. Absent: distention, tenderness Incision: Present: normal, dry, intact Uterus: Present: normal, firm - Labs Labs: Abnormal Lab Results - Last 24 Hours (Table) 04/20/18 Range/Units 08:30 WBC 12.4 H (3.8-10.6) k/uL RBC 3.79 L (3.80-5.40) m/uL Hgb 11.2 L (11.4-16.0) gm/dL Neutrophils # 9.7 H (1.3-7.7) k/uL Assessment and Plan (1) Status post primary low transverse section Current Visit: Yes Status: Acute Code(s): Z98.891 - HISTORY OF UTERINE SCAR FROM PREVIOUS SURGERY SNOMED Code(s): 482166183 Plan: 1. Increase in relation 2. Regular diet 3. By mouth pain medication
[2018-04-21 07:59] LABS: HGB 9.4 gm/dL (11.4-16.0)
--- NOTE | 2018-04-21 09:39 | P.PN ---
Progress Note - Text Progress Note Date: 04/21/18 27-year-old female status post section with Duramorph spinal postop day #1. Patient doing well no nausea, vomiting, pruritus. No motor sensory deficits. And bleeding well and tolerating diet well.
[2018-04-21] MEDS: IBUPROFEN 600 MG TAB PO PRN ×3 (09:56→23:21)
[2018-04-21] MEDS: SENNOSIDES-DOCUSATE SODIUM 1 EACH TAB PO SCH ×2 (09:57→19:16)
[2018-04-21] MEDS: HYDROcodone/APAP 7.5-325MG 1 EACH TAB PO PRN ×2 (13:18→21:05)
[2018-04-22] MEDS: HYDROcodone/APAP 7.5-325MG 1 EACH TAB PO PRN ×2 (04:28→12:45)
[2018-04-22] MEDS: IBUPROFEN 600 MG TAB PO PRN (09:00)
--- NOTE | 2018-04-22 10:28 | P.DS ---
Providers Date of admission: 04/20/18 08:07 Expected date of discharge: 04/22/18 Attending physician: Pancho Melara Primary care physician: Stated None Hospital Course: Chana is doing very well postop day 2. She is ambulating, voiding, and she is tolerating her diet. She voices no complaints. Vital signs are stable and she is afebrile. She is requesting discharge home today. Prescription for Motrin and [place] reported to her pharmacy all questions were answered for her prior to her discharge. Vital signs stable and afebrile. Heart regular, lungs clear, extremities are without pain. Abdomen is soft incision is clean dry and intact and her uterus is firm below the umbilicus. Assessment postop day 2. Plan discharged home follow up with me in 1 week. Patient Condition at Discharge: Good Plan - Discharge Summary Discharge Rx Participant: Yes New Discharge Prescriptions: New HYDROcodone/APAP 5-325MG [[place] 5-325] 1 tab PO Q4HR PRN #30 tab PRN Reason: Pain Ibuprofen [Motrin] 600 mg PO Q6HR PRN #30 tab PRN Reason: Pain No Action Wae-Zlpf-Kblnc Acid [-U Capsule (formulary)] 1 cap PO HS Calcium Carbonate [Tums] 500 mg PO TID PRN PRN Reason: Heartburn Discharge Medication List Ofz-Sybx-[id number] Acid [-U Capsule (formulary)] 1 cap PO HS [History] Calcium Carbonate [Tums] 500 mg PO TID PRN 04/19/18 [History] HYDROcodone/APAP 5-325MG [[place] 5-325] 1 tab PO Q4HR PRN #30 tab 04/22/18 [Rx] Ibuprofen [Motrin] 600 mg PO Q6HR PRN #30 tab 04/22/18 [Rx] Follow up Appointment(s)/Referral(s): Pancho Melara DO [Doctor of Osteopathic Medicine] - 2 Weeks Activity/Diet/Wound Care/Special Instructions: No heavy lifting, limit stairs and driving, and pelvic rest. If any high temperatures, heavy bleeding, or severe pain call my office Discharge Disposition: HOME SELF-CARE
[2018-04-22 10:53] VITALS: BP 128/71; PULSE 91; RESP 18; TEMP 98.4
[2018-04-22] MEDS: SENNOSIDES-DOCUSATE SODIUM 1 EACH TAB PO SCH (10:54)
== END 2018-04-22 15:52 | disposition home or self-care (01) | DRG 787 ==
LOC: 4FBP 08:07
PROVIDERS: ADMIT Obstetrics & Gynecology; ATTEND Obstetrics & Gynecology
PROC: 10D00Z1 Extraction of Products of Conception, Low, Open Approach (ICD-10-PCS; principal; 2018-04-20 10:00)
DX: O69.2XX0 Labor and delivery complicated by other cord entanglement, with compression, not applicable or unspecified (principal); O44.43 Low lying placenta NOS or without hemorrhage, third trimester; O43.193 Other malformation of placenta, third trimester; O99.62 Diseases of the digestive system complicating childbirth; K21.9 Gastro-esophageal reflux disease without esophagitis; Z37.0 Single live birth; Z3A.39 39 weeks gestation of pregnancy; Z90.49 Acquired absence of other specified parts of digestive tract; Z80.49 Family history of malignant neoplasm of other genital organs
CPT/HCPCS: 85025; 86850; 86900; 86901; 88307

== ENCOUNTER → 2018-12-19 | Outpatient (CLI) | payer BC, OTHER ==
--- NOTE | 2018-12-19 20:39 | CT ---
EXAMINATION TYPE: CT pelvis w con DATE OF EXAM: 12/19/2018 COMPARISON: None HISTORY: LLQ abdomen pain. Pt states an ultrasound showed ovarian cysts CT DLP: 342.20 mGycm CONTRAST: CT scan of the abdomen is performed with Oral Contrast and with IV Contrast, patient injected with 10 0 mL of Isovue 300. FINDINGS: BOWEL: The bowel is partially imaged. Appendectomy changes noted. Visualized bowel loops are of olya l caliber. Normal bowel caliber. No inflammation. GENITAL ORGANS: The uterus and ovaries are unremarkable. LYMPH NODES: No greater than 1cm abdominal or pelvic lymph nodes are appreciated. AORTA: No significant abnormality. OSSEOUS STRUCTURES: No significant abnormality is seen. OTHER: No significant additional abnormality is seen. IMPRESSION: 1. Distinct abnormality identified to account for the patient's symptoms.
== END | disposition home or self-care (01) ==
LOC: RADCTMAIN 15:20
PROVIDERS: ATTEND Surgery
DX: M95.5 Acquired deformity of pelvis (principal)
CPT/HCPCS: 72193; Q9967

== ENCOUNTER → 2019-02-18 | Outpatient (CLI) | payer BC, OTHER ==
[2019-02-18 13:11] LABS: Basophils % (A) 0 %; Eosinophils # (A) 0.3 k/uL (0-0.7); Eosinophils % (A) 4 %; HCT 39.1 % (34.0-46.0); HGB 13.3 gm/dL (11.4-16.0); Lymphocytes # (A) 1.9 k/uL (1.0-4.8); Lymphocytes % (A) 23 %; MCH 31.5 pg (25.0-35.0); MCV 92.7 fL (80.0-100.0); Mean Platelet Volume 6.2; Monocytes # (A) 0.3 k/uL (0-1.0); Monocytes % (A) 3 %; Neutrophils # (A) 5.6 k/uL (1.3-7.7); Neutrophils % (A) 68 %; Platelet Count 314 k/uL (150-450); RBC 4.22 m/uL (3.80-5.40); RDW 12.1 % (11.5-15.5); WBC 8.2 k/uL (3.8-10.6)
== END | disposition home or self-care (01) ==
LOC: LABWHC1 12:21
PROVIDERS: ATTEND Obstetrics & Gynecology
DX: Z01.812 Encounter for preprocedural laboratory examination (principal)
CPT/HCPCS: 36415; 85025

== ENCOUNTER 2019-03-06 06:05 | Day surgery (SDC) | payer BC, OTHER ==
[2019-03-03 12:29] VITALS: BMI 21.6
[~2019-03-06 06:05] MED LIST changes: -HYDROmorphone 0.5 MG/0.5 ML SYRINGE IVP PRN; +LACTATED RINGERS 1,000 ML IV SCH; -NALBUPHINE 10 MG/ML VIAL (10ML MDV) IV PRN; -NALOXONE 0.4 MG/ML 1 ML VIAL IV PRN; +Pre Op ABX Message 1 EACH MISC MISCELLANE ONE; -diphenhydrAMINE 50 MG/ML 1 ML VIAL IVP PRN
[2019-03-06] MEDS ORDERED: DEXAMETHASONE SOD PHOSPHATE 10 MG/ML 1 ML VIAL IV ONE (06:39)
--- NOTE | 2019-03-06 07:33 | P.HPOB ---
History of Present Illness H&P Date: 03/06/19 Chief Complaint: Pelvic pain Patient is a 28 she'll female who has constant daily pelvic pain. Pain is predominantly located in the left lower quadrant and it is debilitating. Ultrasound was done and did not show any findings CAT scan was also done. She is seen general surgery as well and the conclusion is likely endometriosis. She did have a section so adhesions is also possibility. She had an IUD which initially she felt was the cause for pain it was however removed and the pain continued. No other gross findings on exam. She is taking control pills also without relief as well as nonsteroidal anti-inflammatories. Past Medical History Past Medical History: GERD/Reflux Additional Past Medical History / Comment(s): pt stated she is 22 weeks . History of Any Multi-Drug Resistant Organisms: None Reported Past Surgical History: Appendectomy, Section Additional Past Surgical History / Comment(s): [place] teeth extracted. Past Anesthesia/Blood Transfusion Reactions: No Reported Reaction Past Psychological History: No Psychological Hx Reported Smoking Status: Never smoker Past Alcohol Use History: Occasional Past Drug Use History: None Reported - Past Family History Mother Family Medical History: Cancer Additional Family Medical History / Comment(s): Cervical cancer twice-hyste rectomy. Father Family Medical History: No Reported History Medications and Allergies Home Medications Medication Instructions Recorded Confirmed Type Rxq-[id number]-Lmhjj Acid 1 cap PO DAILY 12/21/17 03/06/19 History [-U Capsule (formulary)] Ibuprofen [Motrin] 600 mg PO Q6HR PRN #30 tab 04/22/18 03/06/19 Rx Allergies Allergy/AdvReac Type Severity Reaction Status Date / Time adhesive tape Allergy Rash/Hives Verified 03/06/19 06:25 Exam Osteopathic Statement: *. No significant issues noted on an osteopathic structural exam other than those noted in the History and Physical/Consult. Vital Signs Temp Pulse Resp BP Pulse Ox 03/06/19 06:31 97.3 F L 74 16 130/67 97 Intake and Output 03/05/19 03/06/19 03/06/19 22:59 06:59 14:59 Other: Weight 54.5 kg - OBG Physical Exam Breast: both: normal (no masses) Abdomen: bowel sounds normal, no diffuse tenderness, no bruit present, no guarding noted, no hepatomegaly, no splenomegaly, no mass Vulva: both: normal Vagina: normal moisture, no discharge Cervix: no lesion, no discharge Uterus: normal size, normal contour Adnexa: both: normal Anus/Rectum: normal perianal skin, no rectal mass, no hemorrhoids, heme negative
[2019-03-06] MEDS ORDERED: KETOROLAC 30 MG/ML 1 ML VIAL ONE (07:34)
[2019-03-06] MEDS ORDERED: LIDOCAINE 1% INJ 10MG/ML (20 ML MDV) ONE (07:34)
[2019-03-06] MEDS ORDERED: fentaNYL (PF) 50 MCG/ML 2 ML AMP ONE (07:34)
[2019-03-06] MEDS ORDERED: SUCCINYLCHOLINE CHLORIDE 100 MG/5 ML SYR IV ONE (07:34)
[2019-03-06] MEDS ORDERED: MIDAZOLAM 2 MG/2 ML VIAL ONE (07:34)
[2019-03-06] MEDS ORDERED: PROPOFOL 10 MG/ML 20 ML VIAL IV ONE (07:34)
[2019-03-06] MEDS ORDERED: BUPIVACAINE (PF) 0.25% 30 ML VIAL SQ ONE ×2 (08:01→08:20)
--- NOTE | 2019-03-06 08:33 | P.OP ---
Date of Procedure: 03/06/19 Preoperative Diagnosis: Pelvic pain Postoperative Diagnosis: Same with endometriosis stage II, left ovarian cyst Procedure(s) Performed: Diagnostic laparoscopy with left ovarian cystotomy and electrofulguration of endometrial implants Anesthesia: ROHIT Surgeon: Pancho Melara Estimated Blood Loss (ml): 3 Urine output (ml): 50 Pathology: none sent Condition: stable Disposition: same day Operative Findings: Stage II endometriosis with multiple clear vesicular lesions scattered throughout the pelvis. Minimal to no scarring is noted. There was a proximally 2-3 cm cyst on the left ovary which was drained. One powder burn lesion noted just above the uterus near the bladder which was briefly electrofulgurated to minimize bladder injury. Some old scarring from endometriosis is noted particularly in the left paraovarian space. Description of Procedure: Patient was taken to the operating suite where general anesthetic was found be adequate. She was prepped and draped in the normal sterile fashion and placed in the dorsal lithotomy position. Initially a weighted speculum was inserted into the vagina and the anterior lip of the cervix identified and grasped with a single tooth tenaculum uterus was then sounded to 8 cm and cervix was dilated. A uterine manipulator was inserted without difficulty and once is accomplished other incidents removed and red rubber cath was used to drain the bladder of urine. Once this was a copy was gloves were changed and attention was turned to the abdominal portion procedure where 2 mL a course of Marcaine was injected periumbilically and through this injected anesthetic under direct visualization with an optical trocar and sleeve the camera was inserted. Once peritoneal placement was assured gas was left to fill the abdomen completely the patient was placed in steep Trendelenburg position. Once this was accomplished a second port and sleeve was inserted in the left lower abdomen approximately 2 cm superior and 2 cm medial to the ASIS with transillumination and direct v isualization. Through this a grasper was used to identify and manipulate tissues. Small amount of scarring is noted on the descending colon but does not appear to be conclusive or problematic. Left ovarian cyst is noted. Multiple clear vesicular lesions are noted indicative of endometriosis throughout the pelvis. Once this is determined, and pictures were taken, a J-hook was used with lateral cautery to collect are full great lesions that were visualized. The J-hook was also used to create a small opening in the left ovarian cyst to perform a cystotomy. Powder Burn lesion above the bladder was visualized and very briefly cauterized. Once this was accomplished and seen no more vesicular lesions gas was allowed to expel from the abdomen and 5 deep breaths were provided during this process. Incidents were then removed and 4-0 Vicryl was used to close incision subcuticularly and the remaining 8 mL of quarter percent Marcaine was injected around these incisions. Incidents were then removed from vagina. Sponge, lap, needle counts were all correct 2. Patient was then taken to the recovery room in stable and satisfactory condition. Plan - Discharge Summary Discharge Rx Participant: Yes New Discharge Prescriptions: New Ibuprofen [Motrin] 600 mg PO Q6HR PRN #30 tab PRN Reason: Pain HYDROcodone/APAP 5-325MG [[place] 5-325] 1 tab PO Q4HR PRN #30 tab PRN Reason: Pain No Action Qju-Enmq-Stifv Acid [-U Capsule (formulary)] 1 cap PO DAILY Ibuprofen [Motrin] 600 mg PO Q6HR PRN #30 tab PRN Reason: Pain Discharge Medication List Rjo-Grpk-Zerfd Acid [-U Capsule (formulary)] 1 cap PO DAILY 12/21/17 [History] Ibuprofen [Motrin] 600 mg PO Q6HR PRN #30 tab 04/22/18 [Rx] HYDROcodone/APAP 5-325MG [[place] 5-325] 1 tab PO Q4HR PRN #30 tab 03/06/19 [Rx] Ibuprofen [Motrin] 600 mg PO Q6HR PRN #30 tab 03/06/19 [Rx] Follow up Appointment(s)/Referral(s): Pancho Melara DO [Doctor of Osteopathic Medicine] - 10 Days Activity/Diet/Wound Care/Special Instructions: No heavy lifting today, no driving today, pelvic rest. If any high temperatures, heavy bleeding, or severe pain call my office Discharge Disposition: HOME SELF-CARE
[2019-03-06] MEDS: HYDROmorphone 0.5 MG/0.5 ML SYRINGE IVP PRN ×2 (08:37→08:42)
[2019-03-06 08:45] VITALS: TEMP 97.1
[2019-03-06] MEDS ORDERED: HYDROcodone/APAP 5-325MG 1 EACH TAB PO ONE (09:45)
[2019-03-06 09:53] VITALS: RESP 18
[2019-03-06 10:19] VITALS: BP 132/69; PULSE 62
== END 2019-03-06 11:00 | disposition home or self-care (01) ==
LOC: OR 06:05
PROVIDERS: ATTEND Obstetrics & Gynecology
DX: N80.3 Endometriosis of pelvic peritoneum (principal); N83.202 Unspecified ovarian cyst, left side; K21.9 Gastro-esophageal reflux disease without esophagitis; Z91.048 Other nonmedicinal substance allergy status; Z90.49 Acquired absence of other specified parts of digestive tract; Z98.818 Other dental procedure status; Z80.49 Family history of malignant neoplasm of other genital organs
CPT/HCPCS: 81025; 49322; 58662; J2250; J1100; J2405; J2001; J3010; J1885; J0330; J2704; J1170

== ENCOUNTER → 2021-12-01 | Outpatient (CLI) | payer BC, OTHER ==
[2021-12-02 00:38] LABS: Urine Alcohol Negative (Negative); Urine Barbiturate Negative (Negative); Urine Cocaine Negative (Negative); Urine Methadone Negative (Negative); Urine Opiates Negative (Negative); Urine Phencyclidine Negative (Negative)
== END | disposition home or self-care (01) ==
LOC: LABWHC1 12:23
PROVIDERS: ATTEND Family Medicine
DX: F90.0 Attention-deficit hyperactivity disorder, predominantly inattentive type (principal)
CPT/HCPCS: 80306

== ENCOUNTER 2022-08-08 10:11 | Emergency (ER) | payer BC, OTHER ==
[2022-08-08 10:20] VITALS: TEMP 98.2
[2022-08-08] MEDS ORDERED: KETOROLAC 15 MG/ML 1 ML VIAL IVP STA (10:44)
[2022-08-08] MEDS ORDERED: diphenhydrAMINE 50 MG/ML 1 ML VIAL IVP STA (10:44)
[2022-08-08] MEDS ORDERED: SODIUM CHLORIDE 0.9% 1,000 ML IV STA ×2 (10:44→12:07)
[2022-08-08] MEDS ORDERED: PANTOPRAZOLE 40 MG/10 ML VIAL IVP STA (10:44)
[2022-08-08] MEDS ORDERED: ONDANSETRON 4 MG/2 ML VIAL IVP STA (10:44)
--- NOTE | 2022-08-08 11:06 | ED ---
General Adult HPI - General Chief complaint: Abdominal Pain Stated complaint: Vomiting Time Seen by Provider: 08/08/22 10:22 Source: patient Mode of arrival: ambulatory Limitations: no limitations - History of Present Illness Initial comments: Patient is a 32-year-old female who presents emergency Department complaining of abdominal pain, nausea, vomiting, diarrhea for 2 days. States symptoms began on Sunday suddenly. Is having epigastric abdominal pain. Had one or 2 episodes of diarrhea yesterday that was nonbloody and that has since resolved. States having nausea as well as nonbilious nonbloody emesis. Endorses epigastric achy abdominal pain. No known palliative or provocative factors. Denies any chest pain or shortness breath. Denies any fevers or chills. Denies any urinary complaints. Denies any vaginal discharge or bleeding. States she has a history of a hysterectomy, appendectomy but no other abdominal surgeries. Thought she may have food poisoning but no one else eating the food has similar symptoms. Presents for further evaluation at this time. Denies any fevers, sick contacts. No shortness of breath, cough. - Related Data Home Medications Medication Instructions Recorded Confirmed Lisdexamfetamine Dimesylate 40 mg PO DAILY 08/08/22 08/08/22 [Vyvanse] Previous Rx's Medication Instructions Recorded Dicyclomine [Bentyl] 10 mg PO TID PRN 7 Days #21 capsule 08/08/22 Famotidine 20 mg PO DAILY 7 Days #7 tab 08/08/22 Ondansetron Odt [Zofran Odt] 4 mg PO Q8HR PRN 3 Days #9 tab 08/08/22 Allergies Allergy/AdvReac Type Severity Reaction Status Date / Time adhesive tape Allergy Rash/Hives Verified 08/08/22 10:40 Review of Systems ROS Statement: Those systems with pertinent positive or pertinent negative responses have been documented in the HPI. Review of Systems: CONST: Denies fever EYES: Denies blurry vision ENT: Denies nasal congestion C/V: Denies Chest pain RESP: Denies shortness of breath GI: Endorses abdominal pain : Denies dysuria SKIN: Denies rash. MSK: Denies joint pain. NEURO: Denies headache ROS Other: All systems not noted in ROS Statement are negative. Past Medical History Past Medical History: GERD/Reflux Additional Past Medical History / Comment(s): pt stated she is 22 weeks . History of Any Multi-Drug Resistant Organisms: None Reported Past Surgical History: Appendectomy Additional Past Surgical History / Comment(s): wisdom teeth extractions Past Anesthesia/Blood Transfusion Reactions: No Reported Reaction Past Psychological History: No Psychological Hx Reported Smoking Status: Never smoker Past Alcohol Use History: Occasional Past Drug Use History: Marijuana - Past Family History Mother Family Medical History: Cancer Additional Family Medical History / Comment(s): Cervical cancer twice- hysterectomy. Father Family Medical History: No Reported History General Exam - General Exam Comments Initial Comments: General: Appears in no acute distress. HEAD: Normal with no signs of head trauma. EYES: PERRLA, EOMI, conjunctiva normal, no discharge. ENT: Hearing grossly intact, normal oropharynx. RESPIRATORY: Clear breath sounds bilaterally. No wheezes, rales, or rhonchi. C/V: Regular rate and rhythm. S1 and S2 auscultated, no edema, peripheral pulses 2+ and intact throughout ABD: Abdomen is soft, nondistended. Tender to palpation in the epigastric region. No rebound tenderness. No peritoneal signs. No lower abdominal discomfort. No guarding EXT: Normal range of motion, no obvious deformity SKIN: No rashes or lesions observed on exposed skin. NEURO: Alert and oriented 4. Limitations: no limitations Course Vital Signs 08/08/22 08/08/22 08/08/22 10:18 12:27 13:22 Temperature 98.2 F Pulse Rate 89 70 70 Respiratory 20 18 16 Rate Blood Pressure 122/78 122/66 119/72 O2 Sat by Pulse 99 99 98 Oximetry Medical Decision Making - Medical Decision Making Was pt. sent in by a medical professional or institution (, PA, MEDICAL UNIT SECRETARY, urgent care, hospital, or long term...) When possible be specific @ -No Did you speak to anyone other than the patient for history (EMS, parent, family, police, friend...)? What history was obtained from this source @ -No Did you review nursing and triage notes (agree or disagree)? Why? @ -I reviewed and agree with nursing and triage notes Were old charts reviewed (outside hosp., previous admission, EMS record, old EKG, old radiological studies, urgent care reports/EKG's, long term records)? Report findings @ -No old charts were reviewed Differential Diagnosis (chest pain, altered mental status, abdominal pain women, abdominal pain men, vaginal bleeding, weakness, fever, dyspnea, syncope, headache, dizziness, GI bleed, back pain, seizure, CVA, palpatations, mental health, musculoskeletal)? @ -Differential Abdominal Pain Women: Appendicitis, Cholecystitis, diverticulosis, ischemic bowel, pancreatitis, hep atitis, UTI, gastroenteritis, AAA, incarcerated hernia, bowel obstruction, constipation, inflammatory bowel, hepatitis, peptic ulcer disease, splenic infarction, perforated viscus, vulvitis, ovarian torsion, PID, kidney stone, placenta abruption, this is not meant to be an all-inclusive list EKG interpreted by me (3pts min.). @ -None done X-rays interpreted by me (1pt min.). @ -Chest x-ray reveals no obvious acute cardio pulmonary process. CT interpreted by me (1pt min.). @ -None done U/S interpreted by me (1pt. min.). @ -Patient's ultrasound reveals a hepatic hemangioma but no evidence of cholecystitis or gallbladder disease. What testing was considered but not performed or refused? (CT, X-rays, U/S, labs)? Why? @ -None What meds were considered but not given or refused? Why? @ -None Did you discuss the management of the patient with other professionals (professionals i.e. , PA, MEDICAL UNIT SECRETARY, lab, RT, psych nurse, sr. social media & mobile manager, helpdesk analyst, teacher, patrol officer, mental health case manager)? Give summary @ -No Was smoking cessation discussed for >3mins.? @ -No Was critical care preformed (if so, how long)? @ -No Were there social determinants of health that impacted care today? How? (Homelessness, low income, unemployed, alcoholism, drug addiction, transportation, low edu. Level, literacy, decrease access to med. care, snf, rehab)? @ -No Was there de-escalation of care discussed even if they declined (Discuss DNR or withdrawal of care, Hospice)? DNR status @ -No What co-morbidities impacted this encounter? (DM, HTN, Smoking, COPD, CAD, Cancer, CVA, ARF, Chemo, Hep., AIDS, mental health diagnosis, sleep apnea, morbid obesity)? @ -None Was patient admitted / discharged? Hospital course, mention meds given and route, prescriptions, significant lab abnormalities, going to OR and other pertinent info. @ -Based on the patient's presentation and physical exam, I'm concerned for an acute intra-abdominal process for current symptoms. We will obtain abdominal laboratory studies, color ultrasound, 1 view chest x-ray here and she'll be sent likely treatment with IV fluids, IV Zofran, IV Toradol, IV Benadryl, IV Protonix. Patient was in agreement this plan. Vital signs are within acceptable limits. Patient's imaging is remarkable for a benign hepatic hemangioma. Remainder the imaging unremarkable. Labs are remarkable for a lactic acid of 2.7 likely secondary to dehydration as the patient has been having many episodes of nausea and vomiting. Remainder the labs are acceptable limits. She is not . Negative Covid, flu, RSV swabs. Urinalysis within acceptable limits. Patient was given additional IV fluids. I updated her on her results. She is feeling improved. We will by mouth challenge here. She was in agreement this plan. I tolerated by mouth challenge. She'll be discharged home at this time. Strict return precautions discussed. I updated her on her hepatic hemangioma and recommended repeat imaging and follow-up with her PCP which she was in agreement with. I will provide the patient with a prescription for ODT Zofran, famotidine, Chencho tyl. I instructed the patient to follow up with their PCP in the next 1-3 days. I explained that the patient should return to the emergency department if they experience any worsening symptoms. Strict return precautions were discussed with the patient. The patient expressed understanding of these instructions. I answered all questions that the patient had. The patient was discharged home in good condition with their prescriptions and follow up information. Undiagnosed new problem with uncertain prognosis? @ -No Drug Therapy requiring intensive monitoring for toxicity (Heparin, Nitro, Insulin, Cardizem)? @ -No Were any procedures done? @ -No Diagnosis/symptom? @ -Abdominal pain of unknown etiology Acute, or Chronic, or Acute on Chronic? @ -Acute Uncomplicated (without systemic symptoms) or Complicated (systemic symptoms)? @ - uncomplicated Side effects of treatment? @ -none Exacerbation, Progression, or Severe Exacerbation] @ -no Poses a threat to life or bodily function? @ -no Diagnosis/symptom? @ -Nausea and vomiting, dehydration Acute, or Chronic, or Acute on Chronic? @ -Acute Uncomplicated (without systemic symptoms) or Complicated (systemic symptoms)? @ -Complicated Side effects of treatment? @ -none Exacerbation, Progression, or Severe Exacerbation] @ -no Poses a threat to life or bodily function? @ -no Diagnosis/symptom? @ -Hepatic hemangioma Acute, or Chronic, or Acute on Chronic? @ -Acute Uncomplicated (without systemic symptoms) or Complicated (systemic symptoms)? @ -Uncomplicated Side effects of treatment? @ -none Exacerbation, Progression, or Severe Exacerbation] @ -no Poses a threat to life or bodily function? @ -no - Lab Data Result diagrams: 08/08/22 10:51 08/08/22 10:51 Lab Results 08/08/22 08/08/22 08/08/22 Range/Units 10:51 10:51 10:51 WBC 10.4 (3.8-10.6) k/uL RBC 4.75 (3.80-5.40) m/uL Hgb 15.4 (11.4-16.0) gm/dL Hct 43.8 (34.0-46.0) % MCV 92.3 (80.0-100.0) fL MCH 32.5 (25.0-35.0) pg MCHC 35.2 (31.0-37.0) g/dL RDW 12.1 (11.5-15.5) % Plt Count 337 (150-450) k/uL MPV 7.8 Neutrophils % 80 % Lymphocytes % 14 % Monocytes % 3 % Eosinophils % 1 % Basophils % 0 % Neutrophils # 8.3 H (1.3-7.7) k/uL Lymphocytes # 1.5 (1.0-4.8) k/uL Monocytes # 0.4 (0-1.0) k/uL Eosinophils # 0.1 (0-0.7) k/uL Basophils # 0.0 (0-0.2) k/uL PT 10.8 (9.0-12.0) sec INR 1.0 (<1.2) APTT 25.2 (22.0-30.0) sec Sodium 139 (137-145) mmol/L Potassium 3.7 (3.5-5.1) mmol/L Chloride 103 (98-107) mmol/L Carbon Dioxide 28 (22-30) mmol/L Anion Gap 8 mmol/L BUN 6 L (7-17) mg/dL Creatinine 0.71 (0.52-1.04) mg/dL Est GFR (CKD-EPI)AfAm >90 (>60 ml/min/1.73 sqM) Est GFR (CKD-EPI)NonAf >90 (>60 ml/min/1.73 sqM) Glucose 117 H (74-99) mg/dL Plasma Lactic Acid [place] (0.7-2.0) mmol/L Calcium 9.5 (8.4-10.2) mg/dL Total Bilirubin 0.5 (0.2-1.3) mg/dL AST 23 (14-36) U/L ALT 29 (4-34) U/L Alkaline Phosphatase 46 (38-126) U/L Total Protein 7.4 (6.3-8.2) g/dL Albumin 4.5 (3.5-5.0) g/dL Amylase 50 (30-110) U/L Lipase 116 (23-300) U/L HCG, Qual Not Detected Urine Color Urine Appearance (Clear) Urine pH (5.0-8.0) Ur Specific [place] (1.001-1.035) Urine Protein (Negative) Urine Glucose (UA) (Negative) Urine Ketones (Negative) Urine Blood (Negative) Urine Nitrite (Negative) Urine Bilirubin (Negative) Urine Urobilinogen (<2.0) mg/dL Ur Leukocyte Esterase (Negative) Influenza Type A (PCR) (Not Detectd) Influenza Type B (PCR) (Not Detectd) RSV (PCR) (Not Detectd) SARS-CoV-2 (PCR) (Not Detectd) 08/08/22 08/08/22 08/08/22 Range/Units 10:51 10:51 10:51 WBC (3.8-10.6) k/uL RBC (3.80-5.40) m/uL Hgb (11.4-16.0) gm/dL Hct (34.0-46.0) % MCV (80.0-100.0) fL MCH (25.0-35.0) pg MCHC (31.0-37.0) g/dL RDW (11.5-15.5) % Plt Count (150-450) k/uL MPV Neutrophils % % Lymphocytes % % Monocytes % % Eosinophils % % Basophils % % Neutrophils # (1.3-7.7) k/uL Lymphocytes # (1.0-4.8) k/uL Monocytes # (0-1.0) k/uL Eosinophils # (0-0.7) k/uL Basophils # (0-0.2) k/uL PT (9.0-12.0) sec INR (<1.2) APTT (22.0-30.0) sec Sodium (137-145) mmol/L Potassium (3.5-5.1) mmol/L Chloride (98-107) mmol/L Carbon Dioxide (22-30) mmol/L Anion Gap mmol/L BUN (7-17) mg/dL Creatinine (0.52-1.04) mg/dL Est GFR (CKD-EPI)AfAm (>60 ml/min/1.73 sqM) Est GFR (CKD-EPI)NonAf (>60 ml/min/1.73 sqM) Glucose (74-99) mg/dL Plasma Lactic Acid [place] 2.7 H* (0.7-2.0) mmol/L Calcium (8.4-10.2) mg/dL Total Bilirubin (0.2-1.3) mg/dL AST (14-36) U/L ALT (4-34) U/L Alkaline Phosphatase (38-126) U/L Total Protein (6.3-8.2) g/dL Albumin (3.5-5.0) g/dL Amylase (30-110) U/L Lipase (23-300) U/L HCG, Qual Urine Color Light Yellow Urine Appearance Clear (Clear) Urine pH 6.5 (5.0-8.0) Ur Specific [place] 1.001 (1.001-1.035) Urine Protein Negative (Negative) Urine Glucose (UA) Negative (Negative) Urine Ketones Negative (Negative) Urine Blood Negative (Negative) Urine Nitrite Negative (Negative) Urine Bilirubin Negative (Negative) Urine Urobilinogen <2.0 (<2.0) mg/dL Ur Leukocyte Esterase Negative (Negative) Influenza Type A (PCR) Not Detected (Not Detectd) Influenza Type B (PCR) Not Detected (Not Detectd) RSV (PCR) Not Detected (Not Detectd) SARS-CoV-2 (PCR) Not Detected (Not Detectd) Disposition Clinical Impression: Abdominal pain of unknown cause, Nausea and vomiting, Dehydration Disposition: HOME SELF-CARE Condition: Good Instructions (If sedation given, give patient instructions): Abdominal Pain (ED) Additional Instructions: You have a liver hemangioma which is a benign tumor. Prescriptions: Dicyclomine [Bentyl] 10 mg PO TID PRN 7 Days #21 capsule PRN Reason: Pain Famotidine 20 mg PO DAILY 7 Days #7 tab Ondansetron Odt [Zofran Odt] 4 mg PO Q8HR PRN 3 Days #9 tab PRN Reason: Nausea Is patient prescribed a controlled substance at d/c from ED?: No Referrals: Kathya Capps DO [Primary Care Provider] - 1-2 days Time of Disposition: 12:55
--- NOTE | 2022-08-08 11:10 | XR ---
EXAMINATION TYPE: XR chest 1V portable DATE OF EXAM: 08/08/2022 COMPARISON: NONE HISTORY: Chest pain TECHNIQUE: Single frontal view of the chest is obtained. FINDINGS: There is no focal air space opacity, pleural effusion, or pneumothorax seen. The cardiac silhouette size is within normal limits. The osseous structures are intact. IMPRESSION: 1. No acute process.
[2022-08-08 11:18] LABS: Basophils % (A) 0 %; Eosinophils # (A) 0.1 k/uL (0-0.7); Eosinophils % (A) 1 %; HCT 43.8 % (34.0-46.0); HGB 15.4 gm/dL (11.4-16.0); Lymphocytes # (A) 1.5 k/uL (1.0-4.8); Lymphocytes % (A) 14 %; MCH 32.5 pg (25.0-35.0); MCHC 35.2 g/dL (31.0-37.0); MCV 92.3 fL (80.0-100.0); Mean Platelet Volume 7.8; Monocytes # (A) 0.4 k/uL (0-1.0); Monocytes % (A) 3 %; Neutrophils # (A) 8.3 k/uL (1.3-7.7); Neutrophils % (A) 80 %; Platelet Count 337 k/uL (150-450); RBC 4.75 m/uL (3.80-5.40); RDW 12.1 % (11.5-15.5); WBC 10.4 k/uL (3.8-10.6)
[2022-08-08 11:19] LABS: Appearance,Urine Clear (Clear); Bilirubin,Urine Negative (Negative); Blood,Urine Negative (Negative); Color,Urine Light Yellow; Glucose,Urine (UA) Negative (Negative); Ketones,Urine Negative (Negative); Leukocyte Esterase,Urine Negative (Negative); Nitrite,Urine Negative (Negative); PH, Urine 6.5 (5.0-8.0); Protein,Urine Negative (Negative); Urobilinogen,Urine <2.0 mg/dL (<2.0)
[2022-08-08 11:38] LABS: ALT 29 U/L (4-34); AST 23 U/L (14-36); African American GFR (CKD) >90 (>60 ml/min/1.73 sqM); Albumin 4.5 g/dL (3.5-5.0); Alkaline Phosphatase 46 U/L (38-126); Amylase 50 U/L (30-110); Anion Gap 8 mmol/L; Blood Urea Nitrogen 6 mg/dL (7-17); Calcium 9.5 mg/dL (8.4-10.2); Carbon Dioxide 28 mmol/L (22-30); Chloride 103 mmol/L (98-107); Glucose 117 mg/dL (74-99); Lipase 116 U/L (23-300); Non-African American GFR(CKD) >90 (>60 ml/min/1.73 sqM); Potassium 3.7 mmol/L (3.5-5.1); Sodium 139 mmol/L (137-145); Total Bilirubin 0.5 mg/dL (0.2-1.3); Total Protein 7.4 g/dL (6.3-8.2)
[2022-08-08 11:45] LABS: Partial Thromboplastin Time 25.2 sec (22.0-30.0); Prothrombin Time 10.8 sec (9.0-12.0)
[2022-08-08] MEDS ORDERED: MORPHINE SULFATE 4 MG/ML SYRINGE IVP STA (12:06)
[2022-08-08] MEDS ORDERED: MAG HYDROX/AL HYDROX/SIMETH 30 ML, HYOSCYAMINE ELIXIR 10 ML, LIDOCAINE VISCOUS 2% 10 ML PO STA ×3 (12:06)
--- NOTE | 2022-08-08 12:14 | US ---
EXAMINATION TYPE: US gallbladder DATE OF EXAM: 08/08/2022 COMPARISON: NONE CLINICAL HISTORY: abd pain, n/v. Upper mid abdomen pain. TECHNIQUE: Multiple sonographic images of the right upper quadrant are obtained. FINDINGS: EXAM MEASUREMENTS: Liver Length: 19.0 cm Gallbladder Wall: 0.1 cm CBD: 0.3 cm Right Kidney: 11.1 x 4.5 x 4.0 cm Pancreas: Echogenic in appearance, head not well visualized Liver: Right posterior lobe echogenic nonvascular lesion = 0.7 x 1.1 x 0.5 cm. Enlarged in size. Gallbladder: wnl Evidence for sonographic Parker's sign: neg CBD: wnl Right Kidney: No hydronephrosis or masses seen IMPRESSION: 1. No evidence for acute process. 2. Hyperechoic focus within the liver measuring up to 11 mm superiorly represent hepatic hemangioma. 3.
[2022-08-08 12:28] VITALS: PULSE 70
[2022-08-08 12:36] LABS: HCG,Qualitative Serum Not Detected
[2022-08-08 13:03] LABS: Specific Gravity,Urine 1.001 (1.001-1.035)
[2022-08-08 13:23] VITALS: BP 119/72; RESP 16
== END 2022-08-08 13:30 | disposition home or self-care (01) ==
LOC: EC 10:11
DX: R10.9 Unspecified abdominal pain (principal); R11.2 Nausea with vomiting, unspecified; E86.0 Dehydration; D18.03 Hemangioma of intra-abdominal structures; F12.90 Cannabis use, unspecified, uncomplicated; Z91.09 Other allergy status, other than to drugs and biological substances; Z20.822 Contact with and (suspected) exposure to COVID-19
CPT/HCPCS: 36415; 80053; 82150; 83605; 83690; 85025; 85610; 85730; 81003; 84703; 87636; 71045; 76705; 99284; 96374; 96375 ×4; J2270; J1200; J2405; J1885; C9113

== ENCOUNTER 2022-08-09 08:26 | Emergency (ER) | payer BC, OTHER ==
[2022-08-09 08:31] VITALS: RESP 18; TEMP 97.3
[2022-08-09 09:44] LABS: Basophils % (A) 0 %; Eosinophils # (A) 0.2 k/uL (0-0.7); Eosinophils % (A) 2 %; HCT 39.7 % (34.0-46.0); HGB 13.6 gm/dL (11.4-16.0); Lymphocytes # (A) 1.8 k/uL (1.0-4.8); Lymphocytes % (A) 19 %; MCH 32.3 pg (25.0-35.0); MCHC 34.3 g/dL (31.0-37.0); MCV 94.2 fL (80.0-100.0); Mean Platelet Volume 7.4; Monocytes # (A) 0.4 k/uL (0-1.0); Monocytes % (A) 4 %; Neutrophils # (A) 7.1 k/uL (1.3-7.7); Neutrophils % (A) 74 %; Platelet Count 303 k/uL (150-450); RBC 4.21 m/uL (3.80-5.40); RDW 11.8 % (11.5-15.5); WBC 9.6 k/uL (3.8-10.6)
[2022-08-09 09:54] LABS: ALT 28 U/L (4-34); AST 26 U/L (14-36); African American GFR (CKD) >90 (>60 ml/min/1.73 sqM); Albumin 3.8 g/dL (3.5-5.0); Alkaline Phosphatase 48 U/L (38-126); Anion Gap 4 mmol/L; Blood Urea Nitrogen 11 mg/dL (7-17); Calcium 8.7 mg/dL (8.4-10.2); Carbon Dioxide 28 mmol/L (22-30); Chloride 107 mmol/L (98-107); Glucose 79 mg/dL (74-99); Non-African American GFR(CKD) >90 (>60 ml/min/1.73 sqM); Potassium 3.7 mmol/L (3.5-5.1); Sodium 139 mmol/L (137-145); Total Bilirubin 0.4 mg/dL (0.2-1.3); Total Protein 6.3 g/dL (6.3-8.2)
[2022-08-09 10:00] LABS: INR 1.1 (<1.2); Prothrombin Time 11.1 sec (9.0-12.0)
[2022-08-09] MEDS ORDERED: PANTOPRAZOLE 40 MG/10 ML VIAL IVP STA (10:47)
[2022-08-09] MEDS ORDERED: SODIUM CHLORIDE 0.9% 1,000 ML IV ONE (10:47)
[2022-08-09] MEDS ORDERED: MORPHINE SULFATE 2 MG/ML SYRINGE IVP ONE (10:47)
--- NOTE | 2022-08-09 10:47 | ED ---
GI Bleed HPI - General Chief complaint: GI Bleed Stated complaint: bloody stool Time Seen by Provider: 08/09/22 08:38 Source: patient Mode of arrival: ambulatory Limitations: no limitations - History of Present Illness Initial comments: 32-year-old female previously healthy presents emergency department reporting epigastric abdominal pain. Patient was seen yesterday in the emergency room for similar complaint. She performed which was normal. found to have a 11 mm hemangioma on her liver. she was discharged home with bentyl, zofran and omeprazole. States she has been taking the medications as directed without improvement in her symptoms. This morning she awoke and also had some dark, coffee appearing stools. Patient concern for ulcer. No history of previous. No history of EGD or PE. No fevers or chills. Denies chest pain or shortness of breath. No concern for . Patient is status post hysterectomy. Denies diarrhea or constipation. No urinary issues. Denies vaginal pain, discharge or abnormal bleeding. No other alleviating, precipitating or modifying factors - Related Data Home Medications Medication Instructions Recorded Confirmed Lisdexamfetamine Dimesylate 40 mg PO DAILY 08/08/22 08/09/22 [Vyvanse] Previous Rx's Medication Instructions Recorded Dicyclomine [Bentyl] 10 mg PO TID PRN 7 Days #21 capsule 08/08/22 Famotidine 20 mg PO DAILY 7 Days #7 tab 08/08/22 Ondansetron Odt [Zofran Odt] 4 mg PO Q8HR PRN 3 Days #9 tab 08/08/22 Famotidine [Pepcid] 20 mg PO BID #30 tablet 08/09/22 Sucralfate [Carafate] 1 gm PO ACHS #56 tablet 08/09/22 Allergies Allergy/AdvReac Type Severity Reaction Status Date / Time adhesive tape Allergy Rash/Hives Verified 08/09/22 11:20 Review of Systems ROS Statement: Those systems with pertinent positive or pertinent negative responses have been documented in the HPI. ROS Other: All systems not noted in ROS Statement are negative. Past Medical History Past Medical History: GERD/Reflux Additional Past Medical History / Comment(s): pt stated she is 22 weeks . History of Any Multi-Drug Resistant Organisms: None Reported Past Surgical History: Appendectomy Additional Past Surgical History / Comment(s): wisdom teeth extractions Past Anesthesia/Blood Transfusion Reactions: No Reported Reaction Past Psychological History: No Psychological Hx Reported Smoking Status: Never smoker Past Alcohol Use History: Occasional Past Drug Use History: Marijuana - Past Family History Mother Family Medical History: Cancer Additional Family Medical History / Comment(s): Cervical cancer twice- hysterectomy. Father Family Medical History: No Reported History General Exam Limitations: no limitations General appearance: alert, in no apparent distress Head exam: Present: atraumatic, normocephalic, normal inspection Eye exam: Present: normal appearance, PERRL, EOMI. Absent: scleral icterus, conjunctival injection, periorbital swelling ENT exam: Present: normal exam, mucous membranes moist Neck exam: Present: normal inspection. Absent: tenderness, meningismus, lymphadenopathy Respiratory exam: Present: normal lung sounds bilaterally. Absent: respiratory distress, wheezes, rales, rhonchi, stridor Cardiovascular Exam: Present: regular rate, normal rhythm, normal heart sounds. Absent: systolic murmur, diastolic murmur, rubs, gallop, clicks GI/Abdominal exam: Present: soft, normal bowel sounds. Absent: distended, tenderness, guarding, rebound, rigid Extremities exam: Present: normal inspection, full ROM, normal capillary refill. Absent: tenderness, pedal edema, joint swelling, calf tenderness Back exam: Present: normal inspection Neurological exam: Present: alert, oriented X3, CN II-XII intact Psychiatric exam: Present: normal affect, normal mood Skin exam: Present: warm, dry, intact, normal color. Absent: rash Course Vital Signs 08/09/22 08/09/22 08:28 12:45 Temperature 97.3 F L Pulse Rate 69 63 Respiratory 18 18 Rate Blood Pressure 126/80 128/68 O2 Sat by Pulse 100 100 Oximetry Medical Decision Making - Medical Decision Making Was pt. sent in by a medical professional or institution (, PA, CONTINUITY PERSON, urgent care, hospital, or [facility]...) When possible be specific @ -No Did you speak to anyone other than the patient for history (EMS, parent, family, police, friend...)? What history was obtained from this source @ -No Did you review nursing and triage notes (agree or disagree)? Why? @ -I reviewed and agree with nursing and triage notes Were old charts reviewed (outside hosp., previous admission, EMS record, old EKG, old radiological studies, urgent care reports/EKG's, [facility] records)? Report findings @ - old charts were reviewed - patient was just here for same complaint Differential Diagnosis (chest pain, altered mental status, abdominal pain women, abdominal pain men, vaginal bleeding, weakness, fever, dyspnea, syncope, headache, dizziness, GI bleed, back pain, seizure, CVA, palpatations, mental health, musculoskeletal)? @ -acs, pleurisy, chest wall pain, nstemi, pe, cholelithiasis, pancreatitis EKG interpreted by me (3pts min.). @ -No X-rays interpreted by me (1pt min.). @ -None done CT interpreted by me (1pt min.). @ -yes U/S interpreted by me (1pt. min.). @ -None done What testing was considered but not performed or refused? (CT, X-rays, U/S, labs)? Why? @ -None What meds were considered but not given or refused? Why? @ -None Did you discuss the management of the patient with other professionals (professionals i.e. , PA, CONTINUITY PERSON, lab, RT, psych nurse, social work supervisor, theatrical performer, teacher, probation officer, case checker)? Give summary @ -No Was smoking cessation discussed for >3mins.? @ -No Was critical care preformed (if so, how long)? @ -No Were there social determinants of health that impacted care today? How? (Homelessness, low income, unemployed, alcoholism, drug addiction, transportation, low edu. Level, literacy, decrease access to med. care, senior care, rehab)? @ -No Was there de-escalation of care discussed even if they declined (Discuss DNR or withdrawal of care, Hospice)? DNR status @ -No What co-morbidities impacted this encounter? (DM, HTN, Smoking, COPD, CAD, Cancer, CVA, ARF, Chemo, Hep., AIDS, mental health diagnosis, sleep apnea, morbid obesity)? @ -None Was patient admitted / discharged? Hospital course, mention meds given and route, prescriptions, significant lab abnormalities, going to OR and other pertinent info. @ -Upon arrival patient is placed into room 21. A thorough history and physical exam was performed. Rectal exam is performed which demonstrates brown stool. Laboratory studies are reviewed. Hemoglobin 13.6. Occult is negative. Patient is sent for CT of her abdomen and pelvis which demonstrated some thickening of the vaginal wall. Patient does not have any vaginal pain or discharge. No acute process within the abdomen or pelvis. Results are discussed the patient. Informed her that she may need an EGD. She'll be placed on Carafate and Pepcid the outpatient setting. Continue taking omeprazole. Follow up with GI or surgery for endoscopy and return for any new or worsening symptoms. Patient was agreeable with the plan and discharged home in stable condition Undiagnosed new problem with uncertain prognosis? @ -yes Drug Therapy requiring intensive monitoring for toxicity (Heparin, Nitro, Insulin, Cardizem)? @ -No Were any procedures done? @ -No Diagnosis/symptom? @ -acute epigastric pain Acute, or Chronic, or Acute on Chronic? @ -acute Uncomplicated (without systemic symptoms) or Complicated (systemic symptoms)? @ -complicated Side effects of treatment? @ -No Exacerbation, Progression, or Severe Exacerbation? @ -No Poses a threat to life or bodily function? How? (Chest pain, [place], [place], pneumonia, PE, COPD, DKA, ARF, appy, cholecystitis, CVA, Diverticulitis, Homicidal, Suicidal, threat to staff... and all critical care pts) @ -No - Lab Data Result diagrams: 08/09/22 09:25 08/09/22 09:25 Lab Results 08/09/22 08/09/22 08/09/22 Range/Units 09:25 09:25 09:25 WBC 9.6 (3.8-10.6) k/uL RBC 4.21 (3.80-5.40) m/uL Hgb 13.6 (11.4-16.0) gm/dL Hct 39.7 (34.0-46.0) % MCV 94.2 (80.0-100.0) fL MCH 32.3 (25.0-35.0) pg MCHC 34.3 (31.0-37.0) g/dL RDW 11.8 (11.5-15.5) % Plt Count 303 (150-450) k/uL MPV 7.4 Neutrophils % 74 % Lymphocytes % 19 % Monocytes % 4 % Eosinophils % 2 % Basophils % 0 % Neutrophils # 7.1 (1.3-7.7) k/uL Lymphocytes # 1.8 (1.0-4.8) k/uL Monocytes # 0.4 (0-1.0) k/uL Eosinophils # 0.2 (0-0.7) k/uL Basophils # 0.0 (0-0.2) k/uL PT 11.1 (9.0-12.0) sec INR 1.1 (<1.2) APTT 25.0 (22.0-30.0) sec Sodium 139 (137-145) mmol/L Potassium 3.7 (3.5-5.1) mmol/L Chloride 107 (98-107) mmol/L Carbon Dioxide 28 (22-30) mmol/L Anion Gap 4 mmol/L BUN 11 (7-17) mg/dL Creatinine 0.75 (0.52-1.04) mg/dL Est GFR (CKD-EPI)AfAm >90 (>60 ml/min/1.73 sqM) Est GFR (CKD-EPI)NonAf >90 (>60 ml/min/1.73 sqM) Glucose 79 (74-99) mg/dL Plasma Lactic Acid [place] (0.7-2.0) mmol/L Calcium 8.7 (8.4-10.2) mg/dL Magnesium 2.0 (1.6-2.3) mg/dL Total Bilirubin 0.4 (0.2-1.3) mg/dL AST 26 (14-36) U/L ALT 28 (4-34) U/L Alkaline Phosphatase 48 (38-126) U/L Troponin I (0.000-0.034) ng/mL Total Protein 6.3 (6.3-8.2) g/dL Albumin 3.8 (3.5-5.0) g/dL Stool Occult Blood (Negative) 08/09/22 08/09/22 08/09/22 Range/Units 09:25 09:25 10:25 WBC (3.8-10.6) k/uL RBC (3.80-5.40) m/uL Hgb (11.4-16.0) gm/dL Hct (34.0-46.0) % MCV (80.0-100.0) fL MCH (25.0-35.0) pg MCHC (31.0-37.0) g/dL RDW (11.5-15.5) % Plt Count (150-450) k/uL MPV Neutrophils % % Lymphocytes % % Monocytes % % Eosinophils % % Basophils % % Neutrophils # (1.3-7.7) k/uL Lymphocytes # (1.0-4.8) k/uL Monocytes # (0-1.0) k/uL Eosinophils # (0-0.7) k/uL Basophils # (0-0.2) k/uL PT (9.0-12.0) sec INR (<1.2) APTT (22.0-30.0) sec Sodium (137-145) mmol/L Potassium (3.5-5.1) mmol/L Chloride (98-107) mmol/L Carbon Dioxide (22-30) mmol/L Anion Gap mmol/L BUN (7-17) mg/dL Creatinine (0.52-1.04) mg/dL Est GFR (CKD-EPI)AfAm (>60 ml/min/1.73 sqM) Est GFR (CKD-EPI)NonAf (>60 ml/min/1.73 sqM) Glucose (74-99) mg/dL Plasma Lactic Acid [place] 1.3 (0.7-2.0) mmol/L Calcium (8.4-10.2) mg/dL Magnesium (1.6-2.3) mg/dL Total Bilirubin (0.2-1.3) mg/dL AST (14-36) U/L ALT (4-34) U/L Alkaline Phosphatase (38-126) U/L Troponin I <0.012 (0.000-0.034) ng/mL Total Protein (6.3-8.2) g/dL Albumin (3.5-5.0) g/dL Stool Occult Blood Negative (Negative) Disposition Clinical Impression: Epigastric pain Disposition: HOME SELF-CARE Condition: Stable Instructions (If sedation given, give patient instructions): Gastritis (ED) Additional Instructions: You will need to have an EGD. Please call several of the referral numbers to make an appointment to schedule one. Take the omeprazole, Pepcid and Carafate a s directed. Prescriptions: Sucralfate [Carafate] 1 gm PO ACHS #56 tablet Famotidine [Pepcid] 20 mg PO BID #30 tablet Is patient prescribed a controlled substance at d/c from ED?: No Referrals: Kathya Capps DO [Primary Care Provider] - 1-2 days Tonya Gomes MD [STAFF PHYSICIAN] - 1-2 days Arvind Taylor DO [REFERRING] - 1-2 days Amber Gordillo MD [STAFF PHYSICIAN] - 1-2 days Cristian Hendrickson MD [STAFF PHYSICIAN] - 1-2 days Time of Disposition: 13:01
--- NOTE | 2022-08-09 12:18 | CT ---
EXAMINATION TYPE: CT abdomen pelvis w con CT DLP: 441.8 mGycm, Automated exposure control for dose reduction was used. DATE OF EXAM: 08/09/2022 11:35 AM COMPARISON: 12/19/2018 CLINICAL INDICATION:Female, 32 years old with history of abd pain; Abdominal pain TECHNIQUE: Axial CT of the abdomen and pelvis. Sagittal and coronal reformats were created on a [employer] workstation. Contrast used:100 ml mL of Isovue 300 with IV Contrast, Oral contrast used: without Oral Contrast FINDINGS: LOWER CHEST: Unremarkable ABDOMEN LIVER: Unremarkable GALLBLADDER AND BILE DUCTS: Unremarkable. PANCREAS: Unremarkable. SPLEEN: Unremarkable. ADRENAL GLANDS: Unremarkable. KIDNEYS AND URETERS: No evidence of hydronephrosis or renal calculus. The ureters are unremarkable. PELVIS BLADDER: Unremarkable REPRODUCTIVE: There is thickening of the vagina barakat with anteriorly and posteriorly measuring up to 14 mm anteriorly. The uterus is not definitively visualized there may be surgically absent. ABDOMEN & PELVIS STOMACH AND BOWEL: No evidence of bowel obstruction. Evaluation of the pelvic bowel is slightly limit ed due to paucity of intraabdominal fat. PERITONEUM/RETROPERITONEUM: No evidence of pneumoperitoneum. Trace free fluid is seen within the abdo men and pelvis. VASCULATURE: No evidence of aortic aneurysm. MUSCULOSKELETAL: No acute osseous abnormalities LYMPH NODES: No gross evidence for lymphadenopathy. SOFT TISSUE/ABDOMINAL WALL: Unremarkable IMPRESSION: 1. There is circumferential wall thickening of the vagina, correlate for infectious/inflammatory pro cess. The uterus is not definitively visualized may be surgically absent since 2019. Consider pelvic examination. Correlate with surgical history. No additional acute process within the abdomen and pelv is definitively visualized.
[2022-08-09 12:46] VITALS: BP 128/68; PULSE 63
== END 2022-08-09 13:25 | disposition home or self-care (01) ==
LOC: EC 08:26
DX: R10.13 Epigastric pain (principal); F12.90 Cannabis use, unspecified, uncomplicated; Z91.09 Other allergy status, other than to drugs and biological substances
CPT/HCPCS: 36415; 80053; 83605; 83735; 84484; 85025; 85610; 85730; 82272; 74177; 99285; 96374; 96375; 96361; J2270; C9113; Q9967

== ENCOUNTER 2023-11-14 12:57 | Emergency (ER) | payer BC ==
[2023-11-14 13:01] VITALS: TEMP 97.9
[2023-11-14 14:29] LABS: Cocaine Screen,Urine Not Detected (NotDetected); Phencyclidine Screen,Urine Not Detected (NotDetected); Urn Cannabinoid Scrn Detected (NotDetected)
[2023-11-14 14:30] LABS: Amphetamine Screen,Urine Detected (NotDetected); Barbiturate Screen,Urine Not Detected (NotDetected); Benzodiazepines Screen,Urine Not Detected (NotDetected); Methadone Screen, Urine Not Detected (NotDetected); Opiate Screen,Urine Not Detected (NotDetected); Oxycodone Screen, Urine Not Detected (NotDetected); Tricyclic Antidepressant,Urine Not Detected (NotDetected)
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
[2023-11-14 15:27] VITALS: BP 136/89; PULSE 76; RESP 18
== END 2023-11-14 15:29 | disposition home or self-care (01) ==
LOC: EC 12:57
DX: T50.905A Adverse effect of unspecified drugs, medicaments and biological substances, initial encounter (principal)
CPT/HCPCS: 80306; 99284

== ENCOUNTER → 2023-11-23 | Outpatient (CLI) | payer BC ==
--- NOTE | 2023-11-24 13:34 | CA ---
Transthoracic Echo Report Name: Ambika Lisa Age: 33 Gender: F : 1990 Exam Date: 11/23/2023 17:20 Exam Location: [facility] Ht (in): 63 Wt (lb): 112 Ordering Physician: Chuy Street DO Attending/Referring Phys: [employer] Worker Callie Hamm RDCS Procedure CPT: Indications: R01.1 cardiac murmur Cardiac Hx: Technical Quality: Good Contrast 1: Total Dose (mL): Contrast 2: Total Dose (mL): MEASUREMENTS (Male / Female) Normal Values 2D ECHO LV Diastolic Diameter PLAX 3.7 cm 4.2 - 5.9 / 3.9 - 5.3 cm LV Systolic Diameter PLAX 2.3 cm IVS Diastolic Thickness 0.9 cm 0.6 - 1.0 / 0.6 - 0.9 cm LVPW Diastolic Thickness 0.9 cm 0.6 - 1.0 / 0.6 - 0.9 cm LV Relative Wall Thickness 0.5 RV Internal Dim ED PLAX 2.4 cm LA Systolic Diameter LX 2.5 cm 3.0 - 4.0 / 2.7 - 3.8 cm LV Diastolic Volume MOD BP 75.1 cm??? 67 - 155 / 56 - 104 cm??? LV Systolic Volume MOD BP 32.6 cm??? 22 - 58 / 19 - 49 cm??? LV Ejection Fraction MOD BP 56.5 % >= 55 % LV Cardiac Index MOD BP 2375.8 cm???/min???m??? LV Diastolic Volume MOD 4C 75.9 cm??? LV Systolic Volume MOD 4C 36.7 cm??? LV Ejection Fraction MOD 4C 51.6 % LV Cardiac Index MOD 4C 2191.4 cm???/min???m??? LV Diastolic Length 4C 7.5 cm LV Systolic Length 4C 6.2 cm LV Diastolic Volume MOD 2C 67.5 cm??? LV Systolic Volume MOD 2C 30.8 cm??? LV Ejection Fraction MOD 2C 54.4 % LV Cardiac Index MOD 2C 2057.8 cm???/min???m??? LV Diastolic Length 2C 6.9 cm LV Systolic Length 2C 6.1 cm LA Volume 36.2 cm??? 18 - 58 / 22 - 52 cm??? LA Volume Index 24.1 cm???/m??? 16 - 28 cm???/m??? M-MODE Aortic Root Diameter MM 2.6 cm AV Cusp Separation MM 2.1 cm DOPPLER AV Peak Velocity 166.7 cm/s AV Peak Gradient 11.1 mmHg MV Area PHT 4.9 cm??? MR Peak Velocity 561.0 cm/s MR Peak Gradient 125.9 mmHg Mitral E Point Velocity 99.6 cm/s Mitral A Point Velocity 80.0 cm/s Mitral E to A Ratio 1.2 MV Deceleration Time 156.1 ms TR Peak Velocity 214.2 cm/s TR Peak Gradient 18.4 mmHg Right Ventricular Systolic Press 23.2 mmHg FINDINGS Left Ventricle Left ventricular ejection fraction is estimated at 55 %. Small left ventricular cavity. Left ventricular wall thickness normal. Normal left ventricular wall motion. Right Ventricle Normal right ventricular size and function. Right ventricular systolic pressure within normal limits. Right Atrium Normal right atrial size. No right atrial thrombus or mass seen. Left Atrium Normal left atrial size. No left atrial thrombus or mass present. Mitral Valve Elongation of the anterior mitral valve leaflet. Moderate mitral regurgitation. Posteriorly directed mitral regurgitation jet. Aortic Valve Trileaflet aortic valve. No aortic valve stenosis or regurgitation. Tricuspid Valve Structurally normal tricuspid valve. Mild tricuspid regurgitation. Pulmonic Valve Structurally normal pulmonic valve. No pulmonic regurgitation. Pericardium No pericardial effusion. No pleural effusion. Aorta Normal size aortic root and proximal ascending aorta. 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 Ernie Kim MD (Electronically Signed) Final Date: 24 November 2023 13:33
== END | disposition home or self-care (01) ==
LOC: RADECHMAIN 17:03
PROVIDERS: ATTEND Family Medicine
DX: I34.0 Nonrheumatic mitral (valve) insufficiency (principal); I34.1 Nonrheumatic mitral (valve) prolapse
CPT/HCPCS: 93306

== ENCOUNTER → 2024-05-21 | Outpatient (CLI) | payer BC ==
--- NOTE | 2024-05-21 11:39 | MM ---
Reason for Exam: Clinical finding. Baseline mammogram. Indicated Problems: Lump or thickening of the right side. Patient History: Menarche at age 16. First Full-Term at age 27. Left ovary removed at age 30. Right ovary removed at age 30. Hysterectomy at age 30. Maternal grandmother had breast cancer. Paternal grandmother had breast cancer. Maternal aunt had breast cancer. Last menstrual period: Prior Study Comparison: Patient's first Mammogram. No prior studies available for comparison. Tissue Density: The breasts are extremely dense, which lowers the sensitivity of mammography. Findings: Analyzed By CAD. Underlying nodularity is suggested on 3-D images throughout the right breast. Palpable marker along the volar quadrant with possible nodularity measuring up to 3 cm persistent soft tissue. Right ultrasound evaluation recommended. No suspicious microcalcification or other discrete abnormality is seen on either side. Overall Assessment: Incomplete: need additional imaging evaluation, BI-RAD 0 Management: Diagnostic Breast Ultrasound of the right breast. [facility], , 05/21/2024 11:36 AM. Electronically signed and approved by: Chi Mejias M.D. Radiologist
--- NOTE | 2024-05-21 12:29 | USB ---
Reason for Exam: Clinical finding. Patient History: Menarche at age 16. First Full-Term at age 27. Left ovary removed at age 30. Right ovary removed at age 30. Hysterectomy at age 30. Maternal grandmother had breast cancer. Paternal grandmother had breast cancer. Maternal aunt had breast cancer. Technique: Method: Whole Breast Handheld. Findings: The whole breast of the right breast, the axilla of the right breast and the retroareolar of the right breast were scanned. A complete US of all four quadrants of the breast common axilla, and retro-areolar region were reviewed. Very dense tissues are present throughout with scattered small cysts measuring up to 5 mm as well as scattered duct ectasia and fibrocystic change. No solid or cystic lesion otherwise seen. Patient's 5:00 palpable site overlies a costochondral junction. Again, no suspicious solid or cystic lesion is seen. No axillary adenopathy. Overall Assessment: Benign, BI-RAD 2 Management: Screening Mammogram of both breasts at age 42. Unless there is an indication to start sooner. Patient should continue monthly self breast exams. If there is any changing or enlarging palpable abnormality, the patient can be rescanned. These results should not preclude additional follow-up of suspicious palpable abnormalities. Results were given to the patient verbally at the time of exam. [facility], , 05/21/2024 12:26 PM. Electronically signed and approved by: Chi Mejias M.D. Radiologist
== END | disposition home or self-care (01) ==
LOC: RADMAMWWP 11:03
PROVIDERS: ATTEND Surgery
DX: N63.10 Unspecified lump in the right breast, unspecified quadrant (principal); Z90.722 Acquired absence of ovaries, bilateral; Z80.3 Family history of malignant neoplasm of breast; R92.343 Mammographic extreme density, bilateral breasts; Z98.82 Breast implant status; R92.2 Inconclusive mammogram
CPT/HCPCS: 77062; 77066